=== PATIENT | female | born 1950 | race African-American/Black ===

== ENCOUNTER 2017-07-30 10:40 | Emergency (ER) | payer MEDICARE ==
[2017-07-30] MEDS ORDERED: Ondansetron ODT 4 MG TAB ONE (11:18)
[2017-07-30 11:20] LABS: Bilirubin Small (Negative); Blood, Urine Large (Negative); Glucose, Urine (Dipstick) Negative (Negative); Ketone, Urine Trace mg/dL (Negative); Nitrite Positive (Negative); Protein, Urine (Dipstick) 100 mg/dL (Neg-Trace)
[2017-07-30 11:22] LABS: Bacteria/HPF 4+ HPF (None Seen); Hyaline Casts/LPF 0-3 HYALINE CAST LPF (0-3 Hyaline); Squamous Epithelial 0-3 HPF (0-3)
[2017-07-30 11:32] LABS: Yeast-All Forms None Seen HPF (None Seen)
[2017-07-30 11:33] LABS: Hematocrit 35.1 % (36.0-47.0); Mean Platelet Volume 7.9 fL (7.4-10.4); Red Blood Cell (RBC) Count 3.93 mill/uL (4.20-5.40); White Blood Cell (WBC) Count 9.4 thou/uL (4.8-10.8)
[2017-07-30 11:34] LABS: #Lymphocytes 0.9 thou/uL (1.20-3.40); #Monocytes 1.1 thou/uL (0.11-0.59); #Neutrophils 7.4 thou/uL (1.40-6.50); %Basophils 0.2 % (0.0-1.0); %Lymphocytes 9.5 % (21.0-51.0); %Monocytes 12.1 % (0.0-10.0)
[2017-07-30 11:55] LABS: ALT (SGPT) 27 U/L (8-55); AST (SGOT) 31 U/L (5-34); Alkaline Phosphatase 118 U/L (40-150); Anion Gap 14 mmol/L (10-20); BUN (Urea Nitrogen) 11 mg/dL (9.8-20.1); Bilirubin, Total 0.9 mg/dL (0.2-1.2); Calc. Creatinine Clearance 0 mL/min (70-130); Calcium 8.5 mg/dL (7.8-10.44); Carbon Dioxide 26 mmol/L (23-31); Chloride 94 mmol/L (98-107); Estimated GFR-MDRD Greater than 90; Globulin 3.9 g/dL (2.4-3.5); Lipase 12 U/L (8-78); Protein, Total 7.2 g/dL (6.0-8.3)
[2017-07-30] MEDS ORDERED: Sulfameth/Trimethoprim DS 800-160mg TAB ONE (13:01)
--- NOTE | 2017-07-30 15:14 | CT ---
ABDOMEN CT WITH CONTRAST PELVIC CT WITH CONTRAST: Date: 07/30/17 COMPARISON: 07/07/14. CORRELATION: CT angiogram chest dated 02/26/17 and 04/22/13. TECHNIQUE: Abdomen and pelvic CT are performed with IV contrast. Coronal reformatted images are submitted for i nterpretation. FINDINGS: ABDOMEN CT: There is irregular marginated opacity in the anterior right lower lobe measuring 1.2 x 1.4 cm. This opacity is noted on prior studies dating as far back as April 2013. There has been no significant zainab nge. There is also a stable, 3.0 mm nodule in the middle lobe, unchanged. Heart size is within sharda l limits. No significant pericardial fluid. The visualized aorta has an overall normal caliber. No p eriaortic fat stranding. Symmetric attenuation of the psoas muscles. Intra and extrahepatic portal vein is patent. The liver, pancreas, and adrenal glands have appropria te enhancement. Redemonstration of an exophytic hypodensity emanating from the right kidney, with attenuation coeffi cient of 51 Hounsfield units. This hypodensity measures 3.8 x 4.1 cm (previously measuring 3.7 x 3.4 cm). The possibility of a complex cyst is raised, which is slightly increased in size. On the coron al images, there is questionable enhancement along the inferior portion. There is no evidence of obs tructive uropathy. There are multiple hypodensities involving the spleen. These hypodensities are noted as far back as April 2013, suggesting a chronic process. No mesenteric mass, lymphadenopathy, free air, or free fluid. No gastrohepatic, retrocrural, or periportal lymphadenopathy. Limited evaluation of the alimentary canal due to incomplete oral contrast opacification. No evidenc e of bowel obstruction. Ileocecal junction s normal. Appendix is difficult to appreciate. No obvious inflammation at the cecal apex. Scattered fecal material and contrast in a nondistended, nondilated colon. PELVIC CT: Urinary bladder is unremarkable. No pelvic mass, lymphadenopathy, free air, or free fluid. There are no osteoblastic or osteolytic lesions. IMPRESSION: 1. No acute abnormality in the abdomen or pelvis. 2. Chronic changes in the right lower lobe and middle lobe. 3. Chronic changes in the spleen. 4. Probably enlarging complex right renal cyst. Better interrogation with a nonemergent renal mass protocol CT versus abdomen MRI is recommended to confirm that there is no underlying neoplasm. POS: [facility]
[2017-07-30] MEDS ORDERED: ISOVUE-370 76%-LOCM 1 ML ONE (15:26)
== END 2017-07-30 15:11 | disposition home or self-care (01) ==
LOC: ERS 10:40
DX: N39.0 Urinary tract infection, site not specified (principal); J44.9 Chronic obstructive pulmonary disease, unspecified; E78.5 Hyperlipidemia, unspecified; I10 Essential (primary) hypertension; F32.9 Major depressive disorder, single episode, unspecified; F17.210 Nicotine dependence, cigarettes, uncomplicated
CPT/HCPCS: 36415; 74177; 80053; 81003; 81015; 83690; 85025; 87077; 87086; 87186; Q0162

== ENCOUNTER 2017-12-25 17:47 | Inpatient (IN) | payer MEDICARE ==
--- NOTE | 2017-12-25 20:12 | RAD ---
SINGLE VIEW OF THE CHEST: Comparison: 02-26-17 History: Syncope versus seizure. Witnessed fall. FINDINGS: Single view of the chest shows a normal sized cardiomediastinal silhouette. There is no evidence of c onsolidation, mass, or pleural effusion. The bones are unremarkable. IMPRESSION: No evidence of acute cardiopulmonary disease. POS: [facility]
[2017-12-25 20:34] LABS: #Lymphocytes 1.2 thou/uL (1.20-3.40); #Monocytes 0.4 thou/uL (0.11-0.59); %Basophils 0.6 % (0.0-1.0); %Eosinophils 0.1 % (0.0-10.0); %Lymphocytes 22.1 % (21.0-51.0); %Monocytes 6.8 % (0.0-10.0); %Neutrophils 70.4 % (42.0-75.0); Hemoglobin 12.4 g/dL (12.0-16.0); Mean Corpuscular Hemoglobin 27.5 pg (27.0-31.0); Mean Platelet Volume 9.3 fL (7.4-10.4); Platelet Count 219 thou/uL (130-400); RBC Distribution Width 15.6 % (11.5-14.5); White Blood Cell (WBC) Count 5.6 thou/uL (4.8-10.8)
[2017-12-25 20:41] LABS: INR-International Normal Ratio 1.1; Prothrombin Time 14.4 SEC (12.0-14.7)
[2017-12-25 20:48] LABS: ALT (SGPT) 13 U/L (8-55); AST (SGOT) 17 U/L (5-34); Albumin 3.9 g/dL (3.4-4.8); Alkaline Phosphatase 112 U/L (40-150); Anion Gap 11 mmol/L (10-20); BUN (Urea Nitrogen) 12 mg/dL (9.8-20.1); Bilirubin, Total 0.3 mg/dL (0.2-1.2); Calc. Creatinine Clearance 0 mL/min (70-130); Calcium 9.5 mg/dL (7.8-10.44); Carbon Dioxide 25 mmol/L (23-31); Chloride 104 mmol/L (98-107); Estimated GFR-MDRD Greater than 90; Globulin 3.6 g/dL (2.4-3.5); Glucose 94 mg/dL (80-115); Potassium 4.1 mmol/L (3.5-5.1); Protein, Total 7.5 g/dL (6.0-8.3); Sodium 136 mmol/L (136-145)
[2017-12-25 21:02] LABS: CKMB 2.2 ng/mL (0-6.6); Troponin I 0.014 ng/mL (< 0.028)
--- NOTE | 2017-12-25 21:06 | CT ---
CT OF THE BRAIN WITHOUT CONTRAST: Comparison: 03-04-15 History: Syncope versus seizure, witnessed fall. Technique: Multiple contiguous axial images were obtained in a CT of the brain without contrast. FINDINGS: There is a hypodense subdural collection along the left frontal convexity extending slightly to the p arietal convexity. This measures 9 mm in thickness. There is hyperdensity along the calvarium in this location which may represent an acute on chronic component and this likely represents an acute on ch ronic subdural hematoma. No significant midline shift of downward herniation is seen. There is no mya dence of hydronephrosis or intraventricular hemorrhage. The calvarium and overlying soft tissues are unremarkable. The visualized paranasal sinuses and masto id air cells are well aerated. IMPRESSION: Acute on chronic left subdural hematoma. Dr. Macdonald notified of the findings at 7:37 p.m. on 12-25-17 . POS: [facility]
--- NOTE | 2017-12-25 21:09 | CT ---
CT CERVICAL SPINE WITHOUT CONTRAST: Comparison: None. History: Fall with seizure. Neck pain. Technique: Multiple contiguous axial images were obtained in a CT of the cervical spine without contr ast. Sagittal and coronal reformats were performed. FINDINGS: There are moderate degenerative changes in the cervical spine. There is fusion of the C2 and C3 level s. The vertebral bodies demonstrate normal height and alignment without acute fracture or subluxation . No prevertebral soft tissue swelling is seen. Posterior facets are well aligned. Normal alignment of the skull base with the cervical spine is seen . There are emphysematous changes in the lung apices. IMPRESSION: Moderate degenerative changes of the cervical spine without acute osseous abnormality. POS: [facility]
[2017-12-25] MEDS: SODIUM CHLORIDE 0.9% IVPB SCH (23:37)
[2017-12-25] MEDS: FOSPHENYTOIN SODIUM IVPB SCH (23:37)
[2017-12-25] MEDS: Sodium Chloride 0.9% 1,000 ML IV SCH (23:37)
[2017-12-25] MEDS ORDERED: Acetaminophen 325 MG TAB PO PRN (23:55)
[2017-12-26 02:55] VITALS: BMI 21.9
--- NOTE | 2017-12-26 07:46 | CON ---
DATE OF CONSULTATION: 12/26/2017 ATTENDING PHYSICIAN: Dr. Lei Monet HISTORY OF PRESENT ILLNESS: The patient is a 67-year-old female with a past medical history of seizure disorder on Dilantin, hypertension , hyperlipidemia who presented to the emergency department after a suspected seizure. The patient reports she was walking to her neighbor's house and the last thing she remembers waking up on the ground. She believes she likely had a seizure. She reports she has had several other falls/seizure episodes over the last [address] head on arrival was notable for a left subdural hematoma, acute on chronic. There is no midline shift. Neurosurgery was consulted for further evaluation of this subdural hematoma. The patient was admitted to the medical service for further management of her recent seizures. PAST MEDICAL HISTORY: COPD, hypertension, hyperlipidemia, seizure disorder. PAST SURGICAL HISTORY: Right lung surgery, hysterectomy. SOCIAL HISTORY: The patient does not drink or use any drugs. She smokes approximately 10 cigarettes a day. FAMILY HISTORY: Noncontributory. ALLERGIES: The patient is allergic to PENICILLIN. CURRENT MEDICATIONS: Dilantin 30 mg tabs 3 tabs p.o. b.i.d., lisinopril 30 mg tab 1 tab p.o. daily. REVIEW OF SYSTEMS: Per HPI. PHYSICAL EXAMINATION: VITAL SIGNS: Temperature is 98.5, heart rate 68, respiration is 16. The patient is 97% on room air, blood pressure is 116/63. CONSTITUTIONAL: She has a GCS of 15. She is alert and oriented x4, in no acute distress, comfortable. HEAD: Normocephalic, atraumatic. EYES: PERRLA. Extraocular movements are intact. ENT: Oral mucosa is pink, intact and moist. She has normal voice. NECK: Nontender with palpation. Free active range of motion. RESPIRATORY: The patient has symmetric chest expansion, no evidence of dyspnea. CARDIOVASCULAR: Regular rate and rhythm. MUSCULOSKELETAL: Good muscle tone bilateral upper and lower extremities. NEUROLOGIC: No focal motor weakness. NEUROLOGIC: She has a GCS of 15, alert and oriented x4. Normal cranial nerve exam, normal speech. Nonfocal neurologic deficits are appreciated. ASSESSMENT AND PLAN: This is a 67-year-old female with history of seizure disorder who was recently brought to the emergency department after a seizure episode. CT head was notable for subdural hematoma on the left, but this primarily appears chronic in nature and appears stable on repeat a.m. head CT. She is neurologically intact and has no complaints at this time. She is not on any anticoagulants or antiplatelet drugs. We will recommend that she continue to remain off these medications. She takes Dilantin for her seizures and reports she has been compliant with this medication. We will defer any medication adjustments of this medication to the primary team. I do not anticipate any acute neurosurgical intervention. Please reach out to the neurosurgical service for any additional questions or concerns. KEITH
[2017-12-26] MEDS: SODIUM CHLORIDE 0.9% IVPB SCH (08:17)
[2017-12-26] MEDS: FOSPHENYTOIN SODIUM IVPB SCH (08:17)
--- NOTE | 2017-12-26 08:20 | CT ---
PRELIMINARY REPORT/[facility]/EMERGENCY AFTER HOURS PROCEDURE: EXAM: CT Head Without Intravenous Contrast CLINICAL HISTORY: 67 years old, female; Condition or disease; Other: Sdh; Patient HX: . Repeat eval acute on chronic sd h TECHNIQUE: Axial computed tomography images of the head/brain without intravenous contrast. COMPARISON: CT Brain WO Con 2017-12-25 19:27 FINDINGS: Acute on chronic left-sided subdural hematoma, grossly stable in appearance. Mass effect and midline shift to the right are grossly stable. Cisterns are patent. There is no hydrocephalus or acute territorial infarction. Right-sided sinusitis grossly stable IMPRESSION: Grossly stable acute on chronic left-sided subdural hematoma Thank you for allowing us to participate in the care of your patient. Dictated and Authenticated by: Sudeep Daly MD 12/26/2017 6:07 AM Central Time ([place] & [place]) FINAL REPORT HEAD CT WITHOUT CONTRAST: DATE: 12/26/17. COMPARISON: 12/25/17. HISTORY: Reevaluate subdural hematoma. FINDINGS: I agree with the preliminary [facility] report. There is opacification of the imaged anterior ethmoid air cells and maxillary sinus on the right. There is no displaced calvarial fracture. There is a subdural hematoma of mixed attenuation, which suggests acute on chronic subdural hematoma within the left frontal region, measuring up to 9 mm in greatest transverse dimension, similar when c ompared to the prior exam. There is mild stable [id number] midline shift measuring in the 5 mm ra nge. IMPRESSION: Stable acute on chronic left subdural hematoma with stable mass effect and [id number] midline shif t measuring in the 5 mm range. POS: [facility]
[2017-12-26] MEDS ORDERED: FLU VACC TS2017-18 (>65YR) 0.5 ML SYRINGE IM ONE (09:00)
--- NOTE | 2017-12-26 11:16 | CON ---
DATE OF CONSULTATION: 12/26/2017 Seen and examined, agreed with Ni Scott PA-C, note 12/26/2017 A 67-year-old woman with a history of seizure disorder, having had 2 seizures or at least falls over the past several weeks. CT scan shows a small left chronic subdural hygroma with perhaps some acute blood. There is no meaningful mass effect. It was stable on followup this morning. IMPRESSION AND PLAN: With regard to the subdural hematoma, no intervention is planned. I will arran ge a followup CAT scan and clinical visit in 4 weeks. With regard to the seizure disorder, I will defer to Medicine with possible Neurology consult regardi ng adjustment of seizure medicine.
[2017-12-26] MEDS: Sodium Chloride 0.9% 1,000 ML IV SCH (11:39)
[2017-12-26] MEDS ORDERED: Fluticasone Propionate Nasal Spray 16 gm Bottle NASAL PRN (18:07)
[2017-12-26] MEDS ORDERED: Atorvastatin Calcium 20 MG TAB PO SCH (21:00)
[2017-12-27] MEDS ORDERED: Aspirin 81 mg Enteric Coated Tablet PO SCH (09:00)
[2017-12-27] MEDS ORDERED: Amlodipine 5 MG TAB PO SCH (09:00)
[2017-12-27] MEDS ORDERED: Multivitamin W/ Minerals 1 TAB PO SCH (09:00)
--- NOTE | 2017-12-27 10:07 | HP ---
DATE OF ADMISSION: 12/25/2017 CHIEF COMPLAINT: Seizure episode, fall. HISTORY OF PRESENT ILLNESS: Martin is a 67-year-old -Italian female with past medical history of hypertension, seizure disorder who was brought in because she fell. The patient had a seizure episode, she became unconscious and she was in postictal state. The patient does not remember anything after fall. She remembers she was standing in her yard and then she was found by her neighbors. The patient says she has been taking her Dilantin regularly. So the patient was brought to the emergency room where the patient is alert, awake , complained of neck pain. The patient was found to have acute on chronic subdural hematoma in the ER. Her Dilantin level was 4, so the patient received a dose of Dilantin IV piggyback. Neck CT was negative. The patient admitted for further evaluation and management. PAST MEDICAL HISTORY: 1. Hypertension. 2. Seizure disorder. 3. Hyperlipidemia. 4. History of depression. PAST SURGICAL HISTORY: 1. Total hysterectomy. 2. Status post removal of cyst from breast. CURRENT MEDICATIONS: The patient is on Dilantin 300 mg b.i.d., Lipitor 20 mg daily, lisinopril/hydrochlorothiazide 10/12.5 daily, Symbicort inhaler 2 puffs b.i.d. ALLERGIES: PENICILLIN. FAMILY HISTORY: Nothing of interest. SOCIAL HISTORY: The patient lives with family. No history of smoking. No history of alcohol intake. REVIEW OF SYSTEMS: Cardiovascular: No chest pain, no shortness of breath. Respiratory: No cough, fever. Gastrointestinal: No nausea or vomiting. No abdominal pain. No distention. Central Nervous System: No headache or dizziness. PHYSICAL EXAMINATION: GENERAL: The patient is alert, awake, oriented x3. VITAL SIGNS: Temperature 98, pulse 86, respirations 16, blood pressure 108/70. HEENT: Head is normocephalic, atraumatic. Pupils equal and reactive to light. Nasopharynx is pale and dry. Hard and soft palate, no lesions. SKIN: Skin turgor decreased. NECK: Supple. No JVD. LUNGS: Bilateral air entry, no rales or rhonchi. HEART: S1, S2 regular. ABDOMEN: Soft, no distention, no tenderness. Normal bowel sounds. . CENTRAL NERVOUS SYSTEM: No focal deficits. LABORATORY AND X-RAY FINDINGS: CBC shows WBC 5.6, hemoglobin 12, hematocrit 38 , platelets 219. Metabolic panel: Sodium 136, potassium 4, chloride 104, CO2 of 25, urea nitrogen 12, creatinine 0.69, glucose 94. CK-MB 2.2. Troponin 0.014. Her Dilantin level 4. Cervical spine CT showed moderate degenerative changes, no acute abnormality. Chest x-ray, no evidence of acute cardiopulmonary disease. CT of the brain, grossly stable, acute on chronic left -sided subdural hematoma. The patient also reports she had lip swelling with lisinopril. ASSESSMENT: 1. Seizure disorder with fall. 2. Acute on chronic subdural hematoma secondary to fall. 3. Hypertension. 4. Chronic obstructive pulmonary disease. 5. Drug reaction to LISINOPRIL. PLAN: 1. Vital signs q. 4 hours. 2. Activity: As tolerated. 3. Allergies, PENICILLIN. 4. Hep-Lock. 5. Diet: Regular. 6. Continue home medication. 7. We will discontinue lisinopril. 8. We will get Dilantin level. 9. We will start Norvasc 5 mg daily. 10. We will obtain Neurology consult. [facility]
[2017-12-27 15:48] VITALS: BP 143/85; TEMP 98.6
[2017-12-27] MEDS ORDERED: levETIRAcetam 500 MG TAB PO SCH ×2 (16:30→21:00)
--- NOTE | 2017-12-27 16:31 | CON ---
DATE OF CONSULTATION: 12/27/2017 REFERRING PROVIDER: Scotty Owen M.D. REASON FOR CONSULTATION: Recurrent seizures. HISTORY OF PRESENT ILLNESS: Ms. Salazar is a pleasant 67-year-old -Slovenian female, who has been consulted for evaluation of recurrent seizures. She reports that she has a history of seizure disor shannon since in her 40s. She has been on Dilantin 300 mg twice daily. She has been very compliant with her medication. She states that she had been seizure free for approximately 6 years. She had an ep isode of seizure at home about 10 days ago which was while she was in bathroom where she fell down an d hit her head. She had another episode of seizure on Monday, which brought her to the [facility] Room. She does not remember the whole event. She states that she generally has no postictal aura. She had a sudden loss of consciousness followed by tonic clonic convulsions lasting several m inutes. She does have tongue biting and loss of bladder control. She has prolonged postictal confus ion. She had a CT head without contrast done on arrival here, which had shown acute on chronic subdu ral hematoma. Her Dilantin level was noted to be only 4. PAST MEDICAL HISTORY: Significant for hypertension, seizure disorder, hyperlipidemia, and history of depression. PAST SURGICAL HISTORY: Significant for total hysterectomy and cyst removal from breast. CURRENT MEDICATIONS: Please review MAR. ALLERGIES: Include PENICILLIN. FAMILY HISTORY: Noncontributory. SOCIAL HISTORY: She denies smoking, alcohol use, or illicit drug use. She currently lives alone. REVIEW OF SYSTEMS: As mentioned in the HPI, otherwise negative. PHYSICAL EXAMINATION: VITAL SIGNS: Blood pressure 143/85, pulse of 71, temperature of 98.6, respirations of 16, O2 sats of 95% on room air. GENERAL: Well-developed and well-nourished -Slovenian female, in no apparent distress. RESPIRATORY: Clear to auscultation bilaterally. CARDIOVASCULAR: Regular rate and rhythm. NEUROLOGICAL: Mental status: The patient is awake, alert, and oriented x3. Speech and language: F luent speech. Cranial nerves: Pupils are 3 mm and reactive. Visual funes are intact. Peripheral muscles are intact. No nystagmus noted. Face is symmetric. Tongue and uvula are midline. Motor ex am showed normal tone and bulk with 5/5 strength in both lower extremities. Sensory: Sensation is i ntact and symmetric. Deep tendon reflexes 2+ reflexes in both upper and lower extremities. Babinski : Plantar responses flexion bilaterally. Coordination intact to cvybna-zdwk-gotjri and finger tappi ng bilaterally. LABORATORY DATA: Reviewed, which included CBC, coag panel, CMP, and Dilantin level which is signific ant for Dilantin level of 4.1 at admission, it is 9.6 today. IMAGING STUDIES: CT head without contrast was reviewed, which showed acute on chronic subdural hemat juliana. IMPRESSION: 1. Generalized tonic-clonic seizure disorder. 2. Acute on chronic subdural hematoma. ASSESSMENT AND PLAN: Ms. Salazar is a pleasant 67-year-old -Slovenian female with history of seiz ure disorder who presented with the second episode of seizure in the past 10 days. She had been comp liant with her medication and has been seizure free for 6 years until 10 days ago. Her Dilantin leve l is subtherapeutic, even though she has been compliant with her medicine. At this time, I would rec ommend continuing Dilantin at the current dose. I will add Keppra 500 mg twice daily for seizure the rapy. She is okay to be discharged to home. I have advised her on seizure precautions including no driving, no climbing ladders, no operating of heavy machinery. She will follow up with my clinic in 6-8 weeks post-discharge. Thank you for consultation.
== END 2017-12-27 18:30 | disposition home or self-care (01) | DRG 100 ==
LOC: ERS 17:47 → 2SE 21:19
PROVIDERS: ADMIT Internal Medicine; ATTEND Internal Medicine
DX: G40.409 Other generalized epilepsy and epileptic syndromes, not intractable, without status epilepticus (principal); S06.5X9A Traumatic subdural hemorrhage with loss of consciousness of unspecified duration, initial encounter; J44.9 Chronic obstructive pulmonary disease, unspecified; E78.5 Hyperlipidemia, unspecified; I10 Essential (primary) hypertension; W18.30XA Fall on same level, unspecified, initial encounter; Y92.017 Garden or yard in single-family (private) house as the place of occurrence of the external cause; F32.9 Major depressive disorder, single episode, unspecified; Z88.0 Allergy status to penicillin; T46.4X5A Adverse effect of angiotensin-converting-enzyme inhibitors, initial encounter; F17.210 Nicotine dependence, cigarettes, uncomplicated; R60.9 Edema, unspecified
CPT/HCPCS: 36415; 70450; 71045; 72125; 80053; 80185; 82553; 84146; 84484; 85025; 85610; 85730; 90471; 90682; 93005; A4216; G0008; J7050; Q2009; Q2036

== ENCOUNTER 2018-01-30 12:41 | Inpatient (IN) | payer MEDICARE ==
[2018-01-30 13:19] LABS: #Lymphocytes 1.8 thou/uL (1.20-3.40); #Monocytes 0.5 thou/uL (0.11-0.59); #Neutrophils 3.1 thou/uL (1.40-6.50); %Basophils 0.2 % (0.0-1.0); %Lymphocytes 33.7 % (21.0-51.0); %Monocytes 9.5 % (0.0-10.0); %Neutrophils 56.6 % (42.0-75.0); Hemoglobin 12.7 g/dL (12.0-16.0); Mean Corpuscular HGB CONC 32.5 g/dL (32.0-36.0); Mean Corpuscular Hemoglobin 28.1 pg (27.0-31.0); Mean Corpuscular Volume 86.4 fl (81.0-99.0); Mean Platelet Volume 9.3 fL (7.4-10.4); Platelet Count 210 thou/uL (130-400); RBC Distribution Width 15.1 % (11.5-14.5); Red Blood Cell (RBC) Count 4.51 mill/uL (4.20-5.40); White Blood Cell (WBC) Count 5.4 thou/uL (4.8-10.8)
[2018-01-30 13:40] LABS: ALT (SGPT) 11 U/L (8-55); AST (SGOT) 14 U/L (5-34); Albumin 3.8 g/dL (3.4-4.8); Alkaline Phosphatase 129 U/L (40-150); Anion Gap 13 mmol/L (10-20); BUN (Urea Nitrogen) 9 mg/dL (9.8-20.1); Bilirubin, Total 0.4 mg/dL (0.2-1.2); Calc. Creatinine Clearance 0 mL/min (70-130); Calcium 9.3 mg/dL (7.8-10.44); Carbon Dioxide 23 mmol/L (23-31); Chloride 105 mmol/L (98-107); Estimated GFR-MDRD Greater than 90; Globulin 3.5 g/dL (2.4-3.5); Glucose 97 mg/dL (80-115); Potassium 3.5 mmol/L (3.5-5.1); Protein, Total 7.3 g/dL (6.0-8.3); Sodium 137 mmol/L (136-145)
--- NOTE | 2018-01-30 13:42 | RAD ---
PORTABLE CHEST 1 VIEW: Date: 01/30/18 Time: 1320 hours HISTORY: Presyncope, hypertension, seizures. FINDINGS: Comparison made with exam of 12/25/17. The heart size is normal. The aorta is tortuous. The lungs are well expanded without focal areas of c onsolidation, pneumothorax, or pleural effusions. There are degenerative changes in the right acromio clavicular joint. IMPRESSION: No radiographic evidence of acute cardiopulmonary process. POS: [facility]
[2018-01-30 13:44] LABS: CKMB 0.4 ng/mL (0-6.6); Troponin I Less than 0.010 ng/mL (< 0.028)
--- NOTE | 2018-01-30 13:46 | CT ---
CT BRAIN NONCONTRAST: DATE: 01/30/2018 TIME: 1:27 p.m. HISTORY: A 67-year-old female, status post acute head trauma due to fall. Dizziness. Seizure. COMPARISON: 12/26/2017 FINDINGS: The previously demonstrated [id number] small left frontotemporoparietal subdural hematoma, steff uring approximately 9 mm in thickness, has become smaller, currently measuring approximately 4 mm in thickness. It is overall slightly lower in density, intermediate between brain parenchyma and CSF. The previously demonstrated mass effect has improved, with the previously demonstrated [id number] mild midline shift now almost completely resolved. The ventricles are normal in size and configurati on. There is no evidence of acute intraaxial hemorrhage. There is no bur hole or fracture of the ca lvarium. IMPRESSION: 1. Interval decrease in the size of the previously demonstrated left small, acute on chronic, subdur al hematoma; and interval improvement (almost resolved) mass effect. 2. No acute intracranial findings. LONG Tadeo POS: [facility]
--- NOTE | 2018-01-30 14:12 | CT ---
NONCONTRAST CT CERVICAL SPINE: 01/30/2018 HISTORY: Dizziness. The patient fell twice in two days, hitting back of head on a table. Seizure. COMPARISON: 12/25/2017 TECHNIQUE: Contiguous axial CT images are obtained through the cervical spine, from the skull base to the T2-T3 level. Sagittal and coronal reformatted images are provided. FINDINGS: There is straightening of the normal cervical lordotic curvature. There is fusion of the C2 and C3 vertebral bodies. Multilevel degenerative changes are again seen in the cervical spine, which have not progressed when compared to the prior exam. Posterior osteophyte formation and uncinate process hypertrophy are seen at multiple levels, resulting in moderate to sev ere degrees of neural foraminal narrowing at multiple levels, also present on prior exam. No fracture or subluxation is seen involving the cervical spine. Prevertebral soft tissues are within normal limits. There is a hypodense nodule in the left lobe of the thyroid gland. This was present on the prior exa m and was also seen on the study of 02/26/2017 and a study in 2012. Emphysematous changes are again seen in the lung apices. Vascular calcifications are again present. IMPRESSION: 1. Stable multilevel degenerative changes in the cervical spine without evidence of a fracture or marks bluxation. 2. Stable hypodense nodule, left lobe of thyroid gland. POS: [facility]
[2018-01-30 14:46] LABS: Bilirubin Negative (Negative); Blood, Urine Large (Negative); Clarity CLOUDY (Clear); Glucose, Urine (Dipstick) Negative (Negative); Leukocyte Large (Negative); Nitrite Positive (Negative); Protein, Urine (Dipstick) Negative (Neg-Trace); Urobilinogen 0.2 mg/dL (0.2-1.0)
[2018-01-30 14:52] LABS: Bacteria/HPF 4+ HPF (None Seen); Hyaline Casts/LPF 0-3 HYALINE CAST LPF (0-3 Hyaline); Squamous Epithelial None Seen HPF (0-3)
[2018-01-30 14:55] LABS: Amphetamine Not Detected (NotDetected); Barbiturates Screen Detected (NotDetected); Benzodiazepine Screen Not Detected (NotDetected); Cocaine Metabolite Screen Not Detected (NotDetected); Medtox Control Line Valid? VALID (VALID); Medtox Reader # READER 4; Methadone Not Detected (NotDetected); Methamphetamine Not Detected (NotDetected); Opiate Screen Not Detected (NotDetected); Oxycodone Screen Not Detected (NotDetected); Phencyclidine (PCP) Not Detected (NotDetected); THC/Cannabinoid Screen Not Detected (NotDetected); Tricyclic Screen Not Detected (NotDetected)
[2018-01-30] MEDS ORDERED: cefTRIAXone\\ROCEPHIN 2 GM VIAL ONE (20:55)
[2018-01-30] MEDS ORDERED: levETIRAcetam 500 MG TAB PO SCH (21:45)
[2018-01-30 23:20] VITALS: BMI 23.0
[2018-01-30] MEDS ORDERED: Ondansetron ODT 4 MG TAB SL PRN (23:35)
[2018-01-30] MEDS ORDERED: Ondansetron HCl/PF 4 MG/2 ML Vial IVP PRN (23:35)
[2018-01-31] MEDS: cefTRIAXone\\ROCEPHIN 2 GM in Sodium Chloride 0.9% 100 ML IVPB SCH ×2 (00:32→23:35)
--- NOTE | 2018-01-31 03:15 | HP ---
DATE OF ADMISSION: 01/30/2018 REASON FOR ADMISSION AND CHIEF COMPLAINT: Dizziness, weakness, multiple falls and possible syncopal episode. HISTORY OF PRESENT ILLNESS: Ms. Salazar is a 67-year-old -French female who admitted because o f syncope as well as multiple falls. The patient states she has been feeling dizzy for the last few days and fell yesterday and passed out and fell again today twice in the house. First time, she hit the TV stand; later that, she hit the commode. The patient is unable to stand or walk because of diz ziness and unsteady gait, so decided to come to the hospital. In the ER, the patient was evaluated a nd found to have markedly elevated Dilantin level of 33, so she was given IV fluid bolus and is being admitted for further evaluation and management. She does not have any chest pain, nausea or vomitin g. No shortness of breath. Has some headache and neck pain. The patient was recently in the hospit al for seizure disorder with fall and had acute on chronic subdural hematoma. PAST MEDICAL HISTORY: 1. Hypertension. 2. Seizure disorder. 3. Chronic obstructive pulmonary disease. 4. Chronic subdural hematoma. 5. History of drug reaction to LISINOPRIL. PAST SURGICAL HISTORY: 1. Status post hysterectomy. 2. Status post removal of cyst from breast. CURRENT MEDICATIONS: The patient is on Dilantin 300 mg b.i.d., Lipitor 20 mg daily, Symbicort inhale r 2 puffs b.i.d., and amlodipine 5 mg daily. ALLERGIES: PENICILLIN. FAMILY HISTORY: Nothing of interest. SOCIAL HISTORY: The patient lives with family. No history of smoking. No history of alcohol intake . REVIEW OF SYSTEMS: Cardiovascular: No chest pain or shortness of breath. Respiratory: No fever or cough. Gastrointestinal: No nausea or vomiting. No abdominal pain. Central nervous system: Has headache and dizziness. PHYSICAL EXAMINATION: GENERAL: The patient is alert, awake, oriented x3. VITAL SIGNS: Temperature 98, pulse 77, respirations 20, blood pressure 129/90. HEENT: Head is normocephalic, atraumatic. Pupils are equal and reactive to light. Nasopharynx is p wilson and dry. Hard and soft palate, no lesions seen. SKIN: Skin turgor decreased. NECK: Supple. No JVD. LUNGS: Bilateral air entry present, no rales, no rhonchi. CARDIAC: S1, S2 regular. ABDOMEN: Soft, obese. No tenderness. Normal bowel sounds present. RECTAL: Deferred. CENTRAL NERVOUS SYSTEM: The patient is alert, awake and oriented x3. Motor system power 4/5 in all extremities. Deep tendon reflexes 2+ bilaterally. Plantar downgoing. Sensory intact. LABORATORY AND X-RAY FINDINGS: CBC shows WBC 12.5, hemoglobin 12, hematocrit 39, platelets 210. Met abolic panel: Sodium 137, potassium 3.5, chloride 105, CO2 of 23, urea nitrogen 9, creatinine 0.6 an d glucose 97. CK-MB 0.4, troponin I less than 0.010. Urinalysis showed wbc greater than 50 and bact eria 4+. Dilantin level was 33.4. CT of the brain showed interval decrease in the size of previousl y demonstrated subdural hematoma. CT of the cervical spine, stable with multilevel degenerative child ges, no evidence of any fracture. EKG shows normal sinus rhythm, no acute ST-T wave changes seen. C hest x-ray negative. ASSESSMENT: 1. Dilantin toxicity with unsteady gait and multiple falls. 2. Syncopal episode. 3. Urinary tract infection. 4. Hypertension. 5. Seizure disorder. 6. Chronic obstructive pulmonary disease. 7. Chronic subdural hematoma, improving. PLAN: 1. Vital signs q.4 hours. 2. Activity: As tolerated. 3. Allergies: PENICILLIN. 4. Hep-Lock. 5. Hold Dilantin. 6. Rocephin 2 grams IV piggyback daily. 7. Urine cultures. 8. Diet: Regular. 9. Will continue home medications except Dilantin. 10. Intake and output.
[2018-01-31] MEDS ORDERED: Fluticasone Propionate Nasal Spray 16 gm Bottle NASAL PRN (09:49)
[2018-01-31] MEDS: Aspirin 325 MG TAB PO SCH (10:17)
[2018-01-31] MEDS: Amlodipine 5 MG TAB PO SCH (10:17)
[2018-01-31] MEDS: levETIRAcetam 500 MG TAB PO SCH ×2 (10:18→20:25)
[2018-01-31] MEDS: Multivitamin W/ Minerals 1 TAB PO SCH (10:18)
[2018-01-31] MEDS ORDERED: Acetaminophen 325 MG TAB PO PRN (11:37)
[2018-01-31] MEDS ORDERED: Atorvastatin Calcium 20 MG TAB PO SCH (21:00)
[2018-02-01] MEDS: Amlodipine 5 MG TAB PO SCH (09:31)
[2018-02-01] MEDS: levETIRAcetam 500 MG TAB PO SCH (09:31)
[2018-02-01] MEDS: Aspirin 325 MG TAB PO SCH (09:31)
[2018-02-01] MEDS: Multivitamin W/ Minerals 1 TAB PO SCH (09:32)
[2018-02-01 12:54] VITALS: BP 168/51; TEMP 98
--- NOTE | 2018-02-02 14:31 | DIS ---
DATE OF ADMISSION: 01/30/2018 DATE OF DISCHARGE: 02/01/2018 ADMITTING DIAGNOSES: 1. Dilantin toxicity with unsteady gait and multiple falls. 2. Syncopal episode. 3. Urinary tract infection. 4. Hypertension. 5. Seizure disorder. 6. Chronic obstructive pulmonary disease. 7. Chronic subdural hematoma. FINAL DIAGNOSES: 1. Dilantin toxicity with unsteady gait, improved. 2. Syncopal episode, resolved. 3. Urinary tract infection. 4. Hypertension. 5. Seizure disorder. 6. Chronic obstructive pulmonary disease. BRIEF SUMMARY OF HOSPITAL COURSE: Ms. Salazar is a 67-year-old -[place] female admitted because of syncopal episode and multiple falls and unsteady gait. The patient was found to have an elevated Dilantin level with Dilantin toxicity. Dilantin level was 33.4 on admission. Her Dilantin was held and the patient was given IV fluids in the next 2 days, patient improved markedly. Her unsteady gai t, improved. She is able to ambulate without any problem when Dilantin level came down to 16. The p atient was also found to have a urinary tract infection. Urine cultures were done. Culture showed E . coli sensitive to Rocephin and Levaquin and Macrobid. So, in view of the improvement of her sympto ms, the patient was discharged home. At the time of discharge, she was stable. Her vital signs were stable. Lungs were clear. Heart sounds regular. Abdomen soft, nontender. Bowel sounds present. DISCHARGE MEDICATIONS: Include Flonase nasal sprays b.i.d., Keppra 500 b.i.d., multivitamin daily, D ilantin 300 mg b.i.d., Lipitor 20 mg daily, aspirin 325 mg daily, amlodipine 5 mg daily, and Cipro 50 0 b.i.d. for 1 week. FOLLOWUP: The patient will come for followup in two weeks.
== END 2018-02-01 15:52 | disposition home or self-care (01) | DRG 312 ==
LOC: ERS 12:41 → ERHOLD 14:33 → 2NO 23:08
PROVIDERS: ADMIT Internal Medicine; ATTEND Internal Medicine
DX: R55 Syncope and collapse (principal); N39.0 Urinary tract infection, site not specified; T42.0X5A Adverse effect of hydantoin derivatives, initial encounter; R42 Dizziness and giddiness; R26.81 Unsteadiness on feet; I10 Essential (primary) hypertension; G40.909 Epilepsy, unspecified, not intractable, without status epilepticus; J44.9 Chronic obstructive pulmonary disease, unspecified; F17.210 Nicotine dependence, cigarettes, uncomplicated; B96.20 Unspecified Escherichia coli [E. coli] as the cause of diseases classified elsewhere; R29.6 Repeated falls; Z88.0 Allergy status to penicillin; Z79.899 Other long term (current) drug therapy
CPT/HCPCS: 36415; 70450; 71045; 72125; 80053; 80185; 80306; 81003; 81015; 82553; 84484; 85025; 87086; 87186; 93005; 96361; 96365; A4216; J0696; J1956; J7050

== ENCOUNTER 2018-04-24 14:22 | Emergency (ER) | payer MEDICARE ==
[2018-04-24 14:44] LABS: #Lymphocytes 1.5 thou/uL (1.20-3.40); #Monocytes 0.4 thou/uL (0.11-0.59); #Neutrophils 2.1 thou/uL (1.40-6.50); %Basophils 0.6 % (0.0-1.0); %Lymphocytes 36.7 % (21.0-51.0); %Monocytes 10.2 % (0.0-10.0); %Neutrophils 52.5 % (42.0-75.0); Mean Corpuscular HGB CONC 32.7 g/dL (32.0-36.0); Mean Corpuscular Hemoglobin 28.3 pg (27.0-31.0); Mean Corpuscular Volume 86.4 fL (78.0-98.0); Mean Platelet Volume 8.5 fL (7.4-10.4); Platelet Count 181 thou/uL (130-400); RBC Distribution Width 13.8 % (11.5-14.5); Red Blood Cell (RBC) Count 4.61 mill/uL (4.20-5.40)
--- NOTE | 2018-04-24 14:50 | RAD ---
CHEST ONE VIEW: History: Weakness, dyspnea. Comparison: 01-30-18 FINDINGS: Cardiac silhouette is magnified by projection. Pulmonary vasculature is slightly engorged with mild r eticular nodular interstitial prominence, more pronounced at the bases. Mediastinum is midline with a ortic calcification. No lobar consolidation or evidence of pneumothorax. IMPRESSION: Mild bibasilar interstitial prominence and borderline pulmonary vascular prominence are stable. POS: [facility]
[2018-04-24 15:06] LABS: ALT (SGPT) 11 U/L (8-55); AST (SGOT) 15 U/L (5-34); Albumin 3.7 g/dL (3.4-4.8); Alkaline Phosphatase 103 U/L (40-150); Anion Gap 13 mmol/L (10-20); BUN (Urea Nitrogen) 12 mg/dL (9.8-20.1); Bilirubin, Total 0.2 mg/dL (0.2-1.2); Calc. Creatinine Clearance 0 mL/min (70-130); Calcium 8.7 mg/dL (7.8-10.44); Carbon Dioxide 27 mmol/L (23-31); Chloride 104 mmol/L (98-107); Estimated GFR-MDRD 85; Globulin 3.3 g/dL (2.4-3.5); Glucose 113 mg/dL (80-115); Potassium 3.6 mmol/L (3.5-5.1); Sodium 140 mmol/L (136-145)
[2018-04-24] MEDS ORDERED: Diazepam 5 MG TAB ONE (16:02)
--- NOTE | 2018-04-24 16:04 | CT ---
CT HEAD NONCONTRAST DATE: 04/24/18 HISTORY: Seizure. Altered mental status. Subdural hematoma. COMPARISON: 01/30/18. FINDINGS: There is no evidence of acute intracranial hemorrhage or infarct. The subtle, slightly hypodense extr a-axial lentiform fluid collection along the left frontal convexity is barely perceptible on today's study, continued to decrease in size. There is no mass effect or shift of midline structures. Ventric les appear normal in size, shape, and position. IMPRESSION: No acute intracranial abnormalities are demonstrated on noncontrast CT head. POS: [facility]
[2018-04-24 16:10] LABS: CKMB 0.7 ng/mL (0-6.6); Troponin I Less than 0.010 ng/mL (< 0.028)
[2018-04-24 17:45] LABS: Bilirubin Negative (Negative); Blood, Urine Moderate (Negative); Clarity CLEAR (Clear); Glucose, Urine (Dipstick) Negative (Negative); Leukocyte Moderate (Negative); Nitrite Negative (Negative); Protein, Urine (Dipstick) Negative (Neg-Trace); Urobilinogen 0.2 mg/dL (0.2-1.0); pH, Urine 6.5 (5.0-9.0)
[2018-04-24 17:47] LABS: Bacteria/HPF None Seen HPF (None Seen); Hyaline Casts/LPF 0-3 HYALINE CAST LPF (0-3 Hyaline); Pathc Cast-AUWi Flag 0.14 (0-2.49); Squamous Epithelial 0-3 HPF (0-3)
== END 2018-04-24 18:05 | disposition home or self-care (01) ==
LOC: ERS 14:22
DX: R06.02 Shortness of breath (principal); R42 Dizziness and giddiness; R79.89 Other specified abnormal findings of blood chemistry; J44.9 Chronic obstructive pulmonary disease, unspecified; E78.5 Hyperlipidemia, unspecified; I10 Essential (primary) hypertension; F32.9 Major depressive disorder, single episode, unspecified; F17.210 Nicotine dependence, cigarettes, uncomplicated; Z79.899 Other long term (current) drug therapy; Z79.82 Long term (current) use of aspirin
CPT/HCPCS: 36415; 70450; 71045; 80053; 80185; 81003; 81015; 82550; 82553; 84484; 85025; 93005; 94640; J7620

== ENCOUNTER 2018-10-19 16:46 | Emergency (ER) | payer MEDICARE ==
[2018-10-19] MEDS ORDERED: levETIRAcetam 500 MG TAB PO SCH (18:00)
[2018-10-19 18:11] LABS: #Lymphocytes 1.4 thou/uL (1.20-3.40); #Monocytes 0.6 thou/uL (0.11-0.59); #Neutrophils 5.9 thou/uL (1.40-6.50); %Basophils 0.5 % (0.0-1.0); %Eosinophils 0.1 % (0.0-10.0); %Lymphocytes 17.8 % (21.0-51.0); %Monocytes 7.9 % (0.0-10.0); %Neutrophils 73.7 % (42.0-75.0); Hemoglobin 14.3 g/dL (12.0-16.0); Mean Corpuscular HGB CONC 32.5 g/dL (32.0-36.0); Mean Corpuscular Hemoglobin 28.7 pg (27.0-31.0); Mean Corpuscular Volume 88.3 fL (78.0-98.0); Mean Platelet Volume 8.7 fL (7.4-10.4); Platelet Count 216 thou/uL (130-400); RBC Distribution Width 12.4 % (11.5-14.5); Red Blood Cell (RBC) Count 4.98 mill/uL (4.20-5.40)
[2018-10-19 18:26] LABS: ALT (SGPT) 21 U/L (8-55); AST (SGOT) 21 U/L (5-34); Albumin 4.3 g/dL (3.4-4.8); Alkaline Phosphatase 121 U/L (40-150); Anion Gap 15 mmol/L (10-20); BUN (Urea Nitrogen) 16 mg/dL (9.8-20.1); Bilirubin, Total 0.4 mg/dL (0.2-1.2); Calc. Creatinine Clearance 0 mL/min (70-130); Calcium 9.8 mg/dL (7.8-10.44); Carbon Dioxide 27 mmol/L (23-31); Chloride 97 mmol/L (98-107); Dilantin Less than 1.8 ug/mL (10.0-20.0); Estimated GFR-MDRD 90; Globulin 3.5 g/dL (2.4-3.5); Glucose 112 mg/dL (80-115); Potassium 3.4 mmol/L (3.5-5.1); Protein, Total 7.8 g/dL (6.0-8.3); Sodium 136 mmol/L (136-145)
--- NOTE | 2018-10-19 18:35 | CT ---
NONCONTRAST CT BRAIN 10/19/18 HISTORY: Seizure, fall. Patient on Dilantin. Patient complains of right sided head and neck pain. COMPARISON: 04/24/18. FINDINGS: There is diminished attenuation of the periventricular white matter predominantly in the biparietal r egion which is similar to prior exam. Findings are overall nonspecific but likely reflective of chron ic small vessel ischemic changes. There is no evidence of an acute cortical infarction, hemorrhage, m ass effect or midline shift. Ventricular system is normal in size, shape and position. Previously not ed left subdural collection along the left frontal calvarium on prior exam is not visualized on today 's exam. There is no evidence of a calvarial fracture. There is opacification of the visualized right maxillary antrum. Mastoid air cells are clear. IMPRESSION: 1. No acute intracranial abnormality is demonstrated. 2. Mild chronic small vessel ischemic changes. 3. Minimal right supraorbital scalp soft tissue swelling. 4. Opacification of the limited visualized superior aspect right maxillary antrum. POS: [facility]
--- NOTE | 2018-10-19 19:01 | CT ---
CT CERVICAL SPINE 10/19/18 PROVIDED CLINICAL HISTORY: Fall with neck pain. FINDINGS: Comparison 01/30/18. There is no evidence for fracture or traumatic subluxation. Cervical degenerative changes are again s een. No prevertebral soft tissue swelling apparent. The visualized lung apices demonstrate emphysemat ous change. IMPRESSION: No evidence for fracture or traumatic subluxation. POS: [facility]
== END 2018-10-19 19:47 | disposition home or self-care (01) ==
LOC: ERS 16:46
DX: G40.409 Other generalized epilepsy and epileptic syndromes, not intractable, without status epilepticus (principal); J44.9 Chronic obstructive pulmonary disease, unspecified; E78.5 Hyperlipidemia, unspecified; I10 Essential (primary) hypertension; F32.9 Major depressive disorder, single episode, unspecified; F17.210 Nicotine dependence, cigarettes, uncomplicated
CPT/HCPCS: 36415; 36416; 70450; 72125; 80053; 80185; 84484; 85025; 93005; 96365; J1953

== ENCOUNTER 2019-09-13 12:30 | Inpatient (IN) | payer MEDICARE ==
[2019-09-13 13:23] LABS: #Lymphocytes 1.5 thou/uL (1.20-3.40); #Monocytes 0.7 thou/uL (0.11-0.59); #Neutrophils 6.1 thou/uL (1.40-6.50); %Basophils 0.1 % (0.0-1.0); %Lymphocytes 17.7 % (21.0-51.0); %Monocytes 8.5 % (0.0-10.0); %Neutrophils 73.6 % (42.0-75.0); Hemoglobin 12.5 g/dL (12.0-16.0); Mean Corpuscular HGB CONC 32.2 g/dL (32.0-36.0); Mean Corpuscular Hemoglobin 28.1 pg (27.0-31.0); Mean Corpuscular Volume 87.3 fL (78.0-98.0); Mean Platelet Volume 9.1 fL (7.4-10.4); Platelet Count 199 thou/uL (130-400); RBC Distribution Width 13.3 % (11.5-14.5); Red Blood Cell (RBC) Count 4.43 mill/uL (4.20-5.40); White Blood Cell (WBC) Count 8.3 thou/uL (4.8-10.8)
--- NOTE | 2019-09-13 13:23 | RAD ---
CHEST 1 VIEW: Date: 09/13/19 HISTORY: Shortness of breath, wheezing, dyspnea. COMPARISON: 04/24/18. FINDINGS: Heart size is within normal limits. Increased bronchovascular markings bilaterally, stable. Evidence for some new patchy interstitial and alveolar parenchymal change in the right lower lobe concerning f or minimal pneumonia or pneumonitis. No significant pleural effusion. IMPRESSION: Minimal new appearing patchy parenchymal changes in the right lower lobe, concerning for minimal pneu monia/pneumonitis. Marked atherosclerosis of aorta with ectasia. Otherwise stable chest. POS: [facility]
[2019-09-13 13:47] LABS: ALT (SGPT) 28 U/L (8-55); AST (SGOT) 24 U/L (5-34); Albumin 4.2 g/dL (3.4-4.8); Alkaline Phosphatase 114 U/L (40-110); Anion Gap 14 mmol/L (10-20); BUN (Urea Nitrogen) 8 mg/dL (9.8-20.1); Bilirubin, Total 0.5 mg/dL (0.2-1.2); CK (CPK) 132 U/L (29-168); Calc. Creatinine Clearance 0 mL/min (70-130); Calcium 9.7 mg/dL (7.8-10.44); Carbon Dioxide 28 mmol/L (23-31); Chloride 100 mmol/L (98-107); Estimated GFR-MDRD Greater than 90; Globulin 4.2 g/dL (2.4-3.5); Glucose 127 mg/dL (83-110); Protein, Total 8.4 g/dL (6.0-8.3); Sodium 139 mmol/L (136-145)
[2019-09-13 13:52] LABS: Potassium 2.9 mmol/L (3.5-5.1)
--- NOTE | 2019-09-13 14:44 | CT ---
POSTCONTRAST SOFT TISSUE NECK CT: HISTORY: Throat cancer. Feels mass with shortness of breath. Wheezing upon inspiration. COMPARISON: None. FINDINGS: Visualized brain parenchyma: Grossly unremarkable. Visualized orbits: Grossly unremarkable. Sinuses and mastoid air cells: There is evidence of extensive right maxillary sinus disease with muco sydnie thickening, and a small focus of air attenuation. Chronic sinus disease is suspected. Mild maxillary sinus disease, on the left side. Partial opacification of both mastoid air cells. Aerodigestive tract: Mild nonspecific fullness of the nasopharynx without evidence of an obvious mass . No obvious masses in the oral cavity. Midline fatty raphae of the tongue is preserved. Lingual tonsils are unremarkable. Epiglottis has a normal caliber. Preepiglottic fat is preserved. The suprag lottic, glottic and subglottic larynx are grossly unremarkable. Apposition of the vocal cords is presumed to be due to formation. Paraspinal muscles: Symmetric attenuation of the sternocleidomastoid muscles and paraspinal muscles. Cervical spine: Multilevel degenerative changes of the cervical spine with osteophyte formation. Ther e is no evidence of fracture. Straightening of cervical lordosis is raised. There are varying degrees of central canal stenosis and neural foraminal narrowing on the basis of de generative change. At least qllk-ti-kaysbayu central canal stenosis at C3-C4. Grossly the great vessels of the neck are unremarkable. Multiple hypodense lesions in the thyroid gland, incompletely evaluated. No evidence of lymphadenopathy by size criteria. Appropriate attenuation of the parotid and submandibular glands. Upper mediastinum is unremarkable. Extensive emphysematous changes in the visualized lung apices. Ath erosclerosis of the visualized aorta. IMPRESSION: 1. No obvious masses within the aerodigestive tract. Given patient's history, direct visualization is recommended. 2. Incompletely evaluated thyroid hypodensities. 3. Emphysematous changes of the lung apices. Transcribed Date/Time: 09/13/2019 3:19 PM
[2019-09-13] MEDS ORDERED: cefTRIAXone\\ROCEPHIN 2 GM VIAL ONE (15:45)
[2019-09-13] MEDS ORDERED: Oseltamivir 75 MG CAP PO SCH (16:45)
[2019-09-13] MEDS ORDERED: Azithromycin 500 MG in Sodium Chloride 0.9% 250 ML 250 ML IVPB SCH (16:45)
[2019-09-13] MEDS ORDERED: Azithromycin 500 MG VIAL ONE (16:47)
[2019-09-13] MEDS ORDERED: Acetaminophen 325 MG TAB PO PRN (19:12)
[2019-09-13] MEDS: Sodium Chloride 0.9% 1,000 ML IV SCH (19:55)
[2019-09-13 20:01] VITALS: BMI 21.5
[2019-09-14] MEDS: Sodium Chloride 0.9% 1,000 ML IV SCH (03:11)
[2019-09-14] MEDS ORDERED: Prevnar 13-Val Conj/PF 0.5 ML SYRINGE IM ONE (09:00)
[2019-09-14 11:00] LABS: Anion Gap 12 mmol/L (10-20); BUN (Urea Nitrogen) 9 mg/dL (9.8-20.1); Calc. Creatinine Clearance 83 mL/min (70-130); Calcium 9.5 mg/dL (7.8-10.44); Carbon Dioxide 29 mmol/L (23-31); Chloride 103 mmol/L (98-107); Dilantin Less than 1.8 ug/mL (10.0-20.0); Estimated GFR-MDRD Greater than 90; Glucose 110 mg/dL (83-110); Potassium 4.2 mmol/L (3.5-5.1); Sodium 140 mmol/L (136-145)
[2019-09-14] MEDS ORDERED: Oseltamivir 75 MG CAP PO SCH (11:00)
[2019-09-14] MEDS: methylPREDNISolone Sod Succ 40 MG VIAL IVP SCH ×2 (15:02→19:57)
[2019-09-14] MEDS: cefTRIAXone\\ROCEPHIN 2 GM in Sodium Chloride 0.9% 100 ML IVPB SCH (15:03)
[2019-09-14] MEDS: Azithromycin 500 MG in Sodium Chloride 0.9% 250 ML 250 ML IVPB SCH (16:05)
--- NOTE | 2019-09-14 18:30 | HP ---
CHIEF COMPLAINT: Cough, fever, shortness of breath. HISTORY OF PRESENT ILLNESS: Ms. Salazar is a 69-year-old female with past medical history of seizure disorder, COPD, hypertension, came because of cough, shortness of breath, fever, as well as hoarseness of the voice. nonausea, vomiting. The patient states the cough is productive with yellow sputum, has fever of 101 at home, feeling weak, has headache, body aches. All these symptoms going on for few days. She also feels something in the throat. Feels like a mass in the throat. The patient was evaluated in the ER, found to have influenza B and pneumonia as well. CT of the neck was done and it was negative for any mass. The patient was given a dose of Tamiflu and ceftriaxone and azithromycin in the ER. The patient was also found to be hypokalemic with potassium of 2.9, received KCl replacement, and admitted for further evaluation and management. PAST MEDICAL HISTORY: 1. COPD. 2. Seizure disorder. 3. Hypertension. 4. Hyperlipidemia. 5. Tobacco abuse. PAST SURGICAL HISTORY: Status post hysterectomy, status post removal of cyst from the breast. CURRENT MEDICATIONS: The patient is on; 1. Dilantin 300 mg daily. 2. Keppra 500 b.i.d. 3. Atorvastatin 20 mg daily. 4. Amlodipine 5 mg daily. ALLERGIES: PENICILLIN AND LISINOPRIL. FAMILY HISTORY: Nothing contributory. SOCIAL HISTORY: The patient lives with family. No history of alcohol intake. Smokes one pack a day. REVIEW OF SYSTEMS: CARDIOVASCULAR: No chest pain or shortness of breath. RESPIRATORY: She has fever, cough. Cough productive with yellow sputum. GASTROINTESTINAL: No nausea or vomiting. No abdominal pain symptoms. NEUROLOGIC: No headache. No dizziness. PHYSICAL EXAMINATION: GENERAL: The patient is alert, awake, oriented x3. VITAL SIGNS: Temperature 100.5, pulse 92, respirations 20, blood pressure 120/ 70. HEENT: Head is normocephalic and atraumatic. Pupils are equal and reactive. Nasopharynx is pale and dry. Hard and soft palate, no lesions. SKIN: Turgor decreased. NECK: Supple. No JVD. LUNGS: Breath sounds diminished bilaterally. Percussion dull bilaterally. Expiratory wheeze present. HEART: S1 and S2, regular. ABDOMEN: Soft. No tenderness. No distention. No organomegaly. Bowel sounds present. RECTAL: Deferred. CENTRAL NERVOUS SYSTEM: No focal deficits.. LABORATORY DATA: CBC shows WBC 8.3, hemoglobin 12, hematocrit 38, platelets 199. Metabolic panel; sodium 139, potassium 2.9, chloride 100, CO2 of 28, urea nitrogen 8, creatinine 0.6, and glucose 127. Chest x-ray shows possible infiltrate in the right lower lobe. CT scan of the neck did not reveal any mass. EKG shows normal sinus rhythm, no acute ST changes seen. ASSESSMENT: 1. Pneumonia, right lower lobe. 2. Influenza B. 3. Chronic obstructive pulmonary disease, acute exacerbation. 4. Seizure disorder. 5. Hypertension. 6. Severe hypokalemia. PLAN: 1. Vital signs q.4 hours. 2. Activity as tolerated. 3. Allergies, penicillin and lisinopril. 4. Hep-Lock. 5. Diet, regular. 6. Rocephin 2 g IV piggyback daily. 7. Erythromycin 500 mg daily. 8. DuoNeb q.i.d. 9. Continue home medications. 10. Solu-Medrol 20 IVP q.6. 11. KCl replacement. Job ID: [id number] MTDD
[2019-09-14] MEDS: Mometasone/Formoterol 120 PUFF INHALER INH SCH (19:27)
[2019-09-14] MEDS: Atorvastatin Calcium 20 MG TAB PO SCH (19:58)
[2019-09-14] MEDS: levETIRAcetam 500 MG TAB PO SCH (19:58)
[2019-09-14] MEDS: Oseltamivir 75 MG CAP PO SCH (19:58)
[2019-09-15] MEDS: methylPREDNISolone Sod Succ 40 MG VIAL IVP SCH ×4 (01:06→20:24)
[2019-09-15] MEDS: Mometasone/Formoterol 120 PUFF INHALER INH SCH ×2 (07:23→19:17)
[2019-09-15] MEDS: Amlodipine 5 MG TAB PO SCH (08:08)
[2019-09-15] MEDS: Oseltamivir 75 MG CAP PO SCH ×2 (08:09→20:25)
[2019-09-15] MEDS: levETIRAcetam 500 MG TAB PO SCH ×2 (08:09→20:24)
[2019-09-15] MEDS: cefTRIAXone\\ROCEPHIN 2 GM in Sodium Chloride 0.9% 100 ML IVPB SCH (15:36)
[2019-09-15] MEDS: Azithromycin 500 MG in Sodium Chloride 0.9% 250 ML 250 ML IVPB SCH (15:37)
[2019-09-15] MEDS: Atorvastatin Calcium 20 MG TAB PO SCH (20:24)
[2019-09-16] MEDS: methylPREDNISolone Sod Succ 40 MG VIAL IVP SCH ×2 (01:47→09:08)
[2019-09-16] MEDS: Mometasone/Formoterol 120 PUFF INHALER INH SCH (06:35)
[2019-09-16] MEDS: Oseltamivir 75 MG CAP PO SCH (09:08)
[2019-09-16] MEDS: Amlodipine 5 MG TAB PO SCH (09:08)
[2019-09-16] MEDS: levETIRAcetam 500 MG TAB PO SCH (09:09)
[2019-09-16] MEDS ORDERED: predniSONE 20 MG TAB PO SCH (11:30)
[2019-09-16] MEDS ORDERED: Cefdinir 300 MG CAP PO SCH ×2 (11:30→21:00)
[2019-09-16 15:24] VITALS: BP 162/86; TEMP 98.5
[2019-09-17] MEDS ORDERED: predniSONE 20 MG TAB PO SCH (09:00)
--- NOTE | 2019-09-17 14:54 | DIS ---
DATE OF ADMISSION: 09/13/2019 DATE OF DISCHARGE: 09/16/2019 ADMITTING DIAGNOSES: 1. Pneumonia, right lower lobe. 2. Influenza B. 3. Chronic obstructive pulmonary disease, acute exacerbation. 4. Seizure disorder. 5. Hypertension. 6. Severe hypokalemia. FINAL DIAGNOSES: 1. pneumonia,right lower lobe_. 2. Chronic obstructive pulmonary disease, acute exacerbation. Improved. 3. Severe hypokalemia, corrected. 4. influenza B infection 5. Hypertension. 6. Seizure disorder. BRIEF SUMMARY OF HOSPITAL COURSE: A 69-year-old female admitted because of shortness of breath, cough, fever. The patient was found to have pneumonia right lower lobe. pt was started on IV antibiotics with Rocephen and azithromycin. also pt had inflenza B infection, was started on tamiflu. pt had COPD exacerbation and was treated with Neb treatments and steroids. In the next 2 days pt has improved. she did not have any fever. Her sob improved. cough became less. and was ambulating. in view of improvement ,pt was discharged. she was stable at the time of discharge. her vital signs sere stable. Lungs were clear. Discharge medications: 1. Tamiflu 75mg bid x 2days 2.prednisone in tapering doses. 3. omnicef 300 mg bid for 10 days 4. Dulera inhaler 200/5 2 puffs bid 5. proair inhaler 2 puffs qid 6 [id number] mg tid 7atorvastatin 20 mg qhs 8.Levetiracetam 500 mg bid 9.Amlodipine 5 mg daily. pt will come for follow up in 2 weeks. . Job ID: [id number] [facility]
--- NOTE | 2019-09-18 00:26 | PQF ---
YARELIS DOHERTY VENKAT R MD [id number] CLINICAL DOCUMENTATION CLARIFICATION FORM: POST DISCHARGE Addendum to original discharge summary date: ____ Late entry note date: __ DATE: 09/18/19 ATTN: Scotty Vargas Please exercise your independent, professional judgment in responding to the clarification form. Clinical indicators are provided on the bottom of this form for your review In your clinical opinion based on clinical findings below, can you please identify the condition as the reason for Inpatient admission if due to: Please check appropriate box(s): [ ] Hypokalemia [ y ] Pneumonia [ y ] Influenza B [ y] COPD Excerbation [ ] Other diagnosis [ ] Unable to determine In addition, please specify: Present on Admission (POA): [ y ] Yes [ ] No [ ] Unable to determine For continuity of documentation, please document condition throughout progress notes and discharge summary. Thank You. CLINICAL INDICATORS - SIGNS / SYMPTOMS / LABS H&P p1 09/13 Dr Owen came because of cough and SOB, fever as well as hoarseness of the voice, nonnausea and vomiting H&P p1 09/13 Dr Owen pt states the cough is productive with yellow sputum , has fever of 101 at home, feeling weak, has headache body aches H&P p1 09/13 Dr Owen Evaluated in ER found to have Influenza B abd Pneumonia H&P p1 09/13 Dr Owen Found hypokalemic with potassium of 2.9 RISK FACTORS H&P p1 09/13 COPD H&P p1 09/13 Pneumonia with Influenza B H&P p1 09/13 Hypokalemia TREATMENTS: DEC 11 Tamiflu DEC 11 Ceftriaxone DEC 11 Azithromycin DEC 11 Kcl replacement (This form is maintained as a part of the permanent medical record) 2014 [employer]. All Rights Reserved [email or web address] [not provided] MTDD
== END 2019-09-16 15:35 | disposition home or self-care (01) | DRG 190 ==
LOC: ERS 12:30 → T4-A 17:48
PROVIDERS: ADMIT Internal Medicine; ATTEND Student in an Organized Health Care Education/Training Program
PROC: 3E0234Z Introduction of Serum, Toxoid and Vaccine into Muscle, Percutaneous Approach (ICD-10-PCS; principal; 2019-09-14)
DX: J44.1 Chronic obstructive pulmonary disease with (acute) exacerbation (principal); J10.00 Influenza due to other identified influenza virus with unspecified type of pneumonia; E87.6 Hypokalemia; J44.0 Chronic obstructive pulmonary disease with (acute) lower respiratory infection; G40.909 Epilepsy, unspecified, not intractable, without status epilepticus; I10 Essential (primary) hypertension; E78.5 Hyperlipidemia, unspecified; F17.200 Nicotine dependence, unspecified, uncomplicated; E78.00 Pure hypercholesterolemia, unspecified; Z23 Encounter for immunization; Z88.0 Allergy status to penicillin; Z88.8 Allergy status to other drugs, medicaments and biological substances; Z79.899 Other long term (current) drug therapy; Z85.21 Personal history of malignant neoplasm of larynx
CPT/HCPCS: 36415; 70491; 71045; 80048; 80053; 80177; 80185; 82550; 84484; 85025; 87804; 90471; 90670; 93005; 94640; 94760; G0009; J0456; J0696; J2920; J3490; J7050; J7512; J7620

== ENCOUNTER 2020-01-12 14:36 | Emergency (ER) | payer MEDICARE ==
[~2020-01-12 14:36] MED LIST: Iopamidol-370 76% 500 ML 1 ML ONE
[2020-01-12 15:36] LABS: #Lymphocytes 0.6 thou/uL (1.20-3.40); #Monocytes 0.8 thou/uL (0.11-0.59); %Basophils 0.7 % (0.0-1.0); %Eosinophils 0.1 % (0.0-10.0); %Lymphocytes 10.6 % (21.0-51.0); %Monocytes 14.6 % (0.0-10.0); Hemoglobin 12.5 g/dL (12.0-16.0); Mean Corpuscular Hemoglobin 29.3 pg (27.0-31.0); Mean Corpuscular Volume 86.1 fL (78.0-98.0); Mean Platelet Volume 9.8 fL (7.4-10.4); Platelet Count 156 thou/uL (130-400); RBC Distribution Width 13.2 % (11.5-14.5); Red Blood Cell (RBC) Count 4.27 mill/uL (4.20-5.40); White Blood Cell (WBC) Count 5.4 thou/uL (4.8-10.8)
[2020-01-12 15:54] LABS: ALT (SGPT) 47 U/L (8-55); AST (SGOT) 53 U/L (5-34); Albumin 3.5 g/dL (3.4-4.8); Alkaline Phosphatase 115 U/L (40-110); Anion Gap 12 mmol/L (10-20); BUN (Urea Nitrogen) 13 mg/dL (9.8-20.1); Bilirubin, Total 0.5 mg/dL (0.2-1.2); Calc. Creatinine Clearance 0 mL/min (70-130); Calcium 8.7 mg/dL (7.8-10.44); Carbon Dioxide 27 mmol/L (23-31); Chloride 98 mmol/L (98-107); Estimated GFR-MDRD 88; Globulin 3.7 g/dL (2.4-3.5); Glucose 180 mg/dL (83-110); Protein, Total 7.2 g/dL (6.0-8.3); Sodium 134 mmol/L (136-145)
[2020-01-12 15:57] LABS: Potassium 2.9 mmol/L (3.5-5.1)
[2020-01-12 15:59] LABS: Bacteria/HPF 4+ HPF (None Seen); Bilirubin Negative (Negative); Blood, Urine 2+ (Negative); Clarity Turbid (Clear); Glucose, Urine (Dipstick) Normal (Negative); Leukocyte 500 Leu/uL (Negative); Nitrite Negative (Negative); Protein, Urine (Dipstick) 20 mg/dL (Neg-Trace); RBC/HPF 0-3 HPF (0-3); Squamous Epithelial None Seen HPF (0-3); Urobilinogen Normal mg/dL (Less than 2); WBC/HPF 21-50 HPF (0-3)
[2020-01-12] MEDS ORDERED: Morphine 4 MG/ML VIAL ONE (16:30)
[2020-01-12] MEDS ORDERED: cefTRIAXone\\ROCEPHIN 1 GM VIAL ONE (16:31)
[2020-01-12] MEDS ORDERED: Ondansetron PF 4 MG/2 ML Vial ONE (16:31)
[2020-01-12] MEDS ORDERED: Potassium Chloride 20 MEQ TAB ONE (16:31)
--- NOTE | 2020-01-12 17:00 | CT ---
CT BRAIN WITHOUT CONTRAST: History: Head pain, abdominal pain. Comparison: CT brain, 10-19-18 FINDINGS: The ventricles have normal size and position and are unchanged in appearance from the prior study. Th ere is no evidence of intracranial mass, hemorrhage, or infarct. No acute finding or interval change. Sinuses and mastoids appear clear. IMPRESSION: No acute process identified. POS: [facility]
[2020-01-12] MEDS ORDERED: Acetaminophen 500 MG TAB ONE (17:01)
--- NOTE | 2020-01-12 17:09 | CT ---
CT ABDOMEN AND PELVIS WITH IV CONTRAST: Indications: Abdominal pain, right lower quadrant, flank pain. Comparison: CT abdomen/pelvis 07-30-17 FINDINGS: Images through the lung bases shows parenchymal scarring and nodularity in the right lung base which is stable from the prior study indicating chronic parenchymal change. No acute process. The liver appears unremarkable and stable. There are numerous hyperdensities in the spleen. These have been described on studies dating back to 2012 and appear stable. The pancreas is unremarkable. Review of the kidneys revealed bilateral renal cystic lesions which were described previously. A larg e cyst in the inferior pole of the right kidney has been previously described and is stable measuring 4.5 cm. There is a new area of ill-defined low attenuation in the posterior mid right renal cortex. This is i ll-defined but measures approximately 4.4 cm on coronal images. This could represent focal pyelonephr itis. Close follow up is recommended. It is not well defined and does not have the typical appearance of neoplasm. Left kidney is stable in appearance. The right kidney is also mildly edematous. No hydronephrosis. Urinary bladder unremarkable. Small and large bowel loops are unremarkable. Aorta is normal caliber. Atherosclerotic change. Images through the pelvis show a remarkable uterus which appears stable. There is a large amount of stool in the rectum which could represent impending fecal impaction. Osseous structures are unremarkable. IMPRESSION: 1. New area of low attenuation in the posterior mid right renal cortex. This is indeterminate. Focal pyelonephritis should be excluded. Recommend urologic consultation and close follow up. 2. Renal cystic lesion appears stable. 3. Low density lesions in the spleen appear stable. 4. Chronic parenchymal changes in the lung bases appear stable. 5. Large amount of stool in dilated rectum. POS: [facility]
--- NOTE | 2020-01-18 09:59 | EKG ---
Test Reason : Blood Pressure : / mmHG Vent. Rate : 082 BPM Atrial Rate : 082 BPM P-R Int : 164 ms QRS Dur : 092 ms QT Int : 374 ms P-R-T Axes : 055 024 045 degrees QTc Int : 436 ms Normal sinus rhythm Possible Left atrial enlargement Borderline ECG Confirmed by GLADIS MATHEWS ([id number]), editor trade journal DIMAS MEYERS ([id number]) on 01/18/2020 9:58:56 AM Referred By: Confirmed By:GLADIS MATHEWS
== END 2020-01-12 19:57 | disposition home or self-care (01) ==
LOC: ERS 14:36
DX: N39.0 Urinary tract infection, site not specified (principal); R10.9 Unspecified abdominal pain; E87.6 Hypokalemia; F32.9 Major depressive disorder, single episode, unspecified; J44.9 Chronic obstructive pulmonary disease, unspecified; E78.00 Pure hypercholesterolemia, unspecified; E78.5 Hyperlipidemia, unspecified; I10 Essential (primary) hypertension; F17.210 Nicotine dependence, cigarettes, uncomplicated; Z79.899 Other long term (current) drug therapy
CPT/HCPCS: 70450; 74177; 80053; 83605; 85025; 93005; J0696; J2270; J2405; Q9967; 36415; 51701; 81003; 81015; 96365; 96375

== ENCOUNTER 2020-02-03 11:13 | Outpatient (CLI) | payer MEDICARE, OTHER ==
--- NOTE | 2020-02-03 12:56 | RAD ---
EXAM: Two views chest PROVIDED CLINICAL HISTORY: Preoperative evaluation. COMPARISON: 09/13/2019 FINDINGS: Cardiac silhouette and pulmonary vasculature are within normal limits. Mild linear scarring is seen at the lateral right lung base and in the right upper lung zone. No consolidation or pleural fluid is seen. Stable prominence of the aortic arch with vascular calcifications seen. IMPRESSION: 1. Minimal chronic lung changes without evidence of an acute cardiopulmonary process. 2. Stable prominence of the aortic arch.
[2020-02-03 13:23] LABS: #Lymphocytes 1.4 thou/uL (1.20-3.40); #Monocytes 0.3 thou/uL (0.11-0.59); %Basophils 0.7 % (0.0-1.0); %Eosinophils 0.4 % (0.0-10.0); %Neutrophils 52.8 % (42.0-75.0); Hemoglobin 12.7 g/dL (12.0-16.0); Mean Corpuscular HGB CONC 31.2 g/dL (32.0-36.0); Mean Corpuscular Hemoglobin 27.9 pg (27.0-31.0); Mean Corpuscular Volume 89.3 fL (78.0-98.0); Mean Platelet Volume 9.3 fL (7.4-10.4); Platelet Count 180 thou/uL (130-400); RBC Distribution Width 14.9 % (11.5-14.5); Red Blood Cell (RBC) Count 4.57 mill/uL (4.20-5.40); White Blood Cell (WBC) Count 3.8 thou/uL (4.8-10.8)
[2020-02-03 13:41] LABS: Anion Gap 12 mmol/L (10-20); BUN (Urea Nitrogen) 7 mg/dL (9.8-20.1); Calc. Creatinine Clearance 0 mL/min (70-130); Calcium 9.4 mg/dL (7.8-10.44); Carbon Dioxide 26 mmol/L (23-31); Chloride 105 mmol/L (98-107); Estimated GFR-MDRD Greater than 90; Glucose 87 mg/dL (83-110); Potassium 3.7 mmol/L (3.5-5.1); Sodium 139 mmol/L (136-145)
[2020-02-03 18:50] LABS: SARS-CoV-2 MS2 Positive; SARS-CoV-2 N Gene Negative; SARS-CoV-2 S Gene Negative; SARS-CoV-2 orf1ab Negative
--- NOTE | 2020-02-09 15:36 | EKG ---
Test Reason : Blood Pressure : / mmHG Vent. Rate : 069 BPM Atrial Rate : 069 BPM P-R Int : 176 ms QRS Dur : 072 ms QT Int : 388 ms P-R-T Axes : 058 068 072 degrees QTc Int : 415 ms Normal sinus rhythm Possible Left atrial enlargement Borderline ECG When compared with ECG of 12-JAN-2020 15:42, No significant change was found Confirmed by MANUEL WINTERS ([id number]) on 02/09/2020 3:35:51 PM Referred By: KADY Confirmed By:MANUEL WINTERS
== END 2020-02-03 11:14 | disposition home or self-care (01) ==
LOC: LABBT 11:13
PROVIDERS: ATTEND Specialist
DX: Z01.818 Encounter for other preprocedural examination (principal); Z11.59 Encounter for screening for other viral diseases; C14.0 Malignant neoplasm of pharynx, unspecified; J98.4 Other disorders of lung
CPT/HCPCS: 71046; 80048; 85025; 87635; 93005; 93010; U0003

== ENCOUNTER 2020-02-06 09:06 | Day surgery (SDC) | payer MEDICARE ==
[2020-02-06] MEDS ORDERED: Acetaminophen 500 MG TAB ONE (09:52)
[2020-02-06] MEDS ORDERED: Ketorolac Tromethamine 30 MG/ML VIAL ONE (09:52)
[2020-02-06] MEDS ORDERED: Lidocaine 1% PF 5 ML VIAL ONE (10:26)
[2020-02-06] MEDS ORDERED: PROPOFOL 200 MG/20 ML VIAL ONE (10:26)
[2020-02-06] MEDS ORDERED: Lidocaine 1% w/Epinephrine 1:100K 20 ML VIAL ONE (11:40)
[2020-02-06] MEDS ORDERED: Sodium Chloride 0.9% 30 ML ONE (11:40)
[2020-02-06] MEDS ORDERED: Bupivacaine 0.25% HCL 30 ML VIAL ONE (11:40)
[2020-02-06] MEDS ORDERED: Fentanyl 100 MCG/2 ML VIAL ONE (12:14)
--- NOTE | 2020-02-06 13:25 | RAD ---
PORTABLE CHEST 1 VIEW: DATE: 02/06/2020. TIME: 1:10 PM. HISTORY: MediPort placement. FINDINGS: Comparison is made with the exam of 02/03/2020. There has been interval placement of a right subclavian Port-A-Cath with tip in the projection of the SVC. No pneumothorax is seen. The heart size is normal. The aorta is tortuous. Mild chronic child ges are again noted. No lobar consolidation or pleural effusions are identified. IMPRESSION: No acute process. POS: [facility]
--- NOTE | 2020-02-07 10:32 | OP ---
DATE OF PROCEDURE: 02/06/2020 PREOPERATIVE DIAGNOSIS: Laryngeal cancer. POSTOPERATIVE DIAGNOSIS: Laryngeal cancer. PROCEDURE PERFORMED: Placement of right subclavian low-profile power compatible MediPort. ANESTHESIA: General with laryngeal mask airway. INDICATIONS: The patient is a 69-year-old black female. She has recurrent laryngeal cancer. MediPort placement was requested for chemotherapy administration. DESCRIPTION OF PROCEDURE: Informed consent was obtained. The patient was taken to the operating room where total intravenous anesthesia was obtained with the patient in supine position. Right bambi-clavicular area was prepped with ChloraPrep and draped in sterile fashion. Local anesthetic was infiltrated and a large-gauge needle was passed under the clavicle in the subclavian vein. Guidewire was passed through the needle and fluoroscopically confirmed to enter the superior vena cava. Additional local anesthetic was infiltrated and transverse incision was created based on needle insertion site. A subcutaneous pocket was dissected inferiorly. Introducer dilator was passed over the guidewire under fluoroscopic guidance. The guidewire and dilator were removed, and the catheter was passed through the introducer. The tip of the catheter was positioned at the atriocaval junction and the catheter was trimmed to the appropriate length and secured to the locking hub of the MediPort. The port was then placed in the subcutaneous pocket where it was secured to the pectoral fascia with 2 interrupted sutures of 3-0 Prolene. The incision was then closed in layers with 3-0 and 4-0 Monocryl. Additional local anesthetic was infiltrated. The port was cannulated with a Santana needle and it aspirated blood freely and was flushed with heparinized saline. Dermabond was placed externally on the skin incision. There were no complications. Blood loss was negligible. The patient tolerated the procedure well and was taken to recovery room in stable condition. FINDINGS: A low-profile port was selected secondary to the patient's body habitus. It was placed uneventfully into the right subclavian vein. Fluoroscopy was used throughout the procedure. There were no complications. The patient tolerated the procedure well. Job ID: [id number]
== END 2020-02-06 14:40 | disposition home or self-care (01) ==
LOC: SDC 09:06
PROVIDERS: ATTEND Specialist
PROC: 02HV33Z Insertion of Infusion Device into Superior Vena Cava, Percutaneous Approach (ICD-10-PCS; principal; 2020-02-06)
PROC: B518ZZA Fluoroscopy of Superior Vena Cava, Guidance (ICD-10-PCS; 2020-02-06)
DX: C32.9 Malignant neoplasm of larynx, unspecified (principal); E78.00 Pure hypercholesterolemia, unspecified; J44.9 Chronic obstructive pulmonary disease, unspecified; I10 Essential (primary) hypertension; G40.909 Epilepsy, unspecified, not intractable, without status epilepticus; F17.210 Nicotine dependence, cigarettes, uncomplicated; Z79.899 Other long term (current) drug therapy; Z88.0 Allergy status to penicillin
CPT/HCPCS: 36561; 71045; C1788; J0690; J1642; J1885; J2001; J2704; J3010; S0020

== ENCOUNTER 2020-02-12 09:59 | Day surgery (SDC) | payer MEDICARE ==
[~2020-02-12 09:59] MED LIST changes: +CARBOplatin 550 MG in Sodium Chloride 0.9% 250 ML 250 ML IVPB SCH; +DOCETAXEL IVPB SCH; +Dexamethasone 10 MG in Sodium Chloride 0.9% 50 ML IVPB SCH; -Iopamidol-370 76% 500 ML 1 ML ONE; +Palonosetron HCl 0.25 MG in Sodium Chloride 0.9% 50 ML IVPB SCH; +SODIUM CHLORIDE 0.9% IVPB SCH
[2020-02-12] MEDS ORDERED: Sodium Chloride 0.9% 20 ML ONE (10:15)
[2020-02-12 11:15] VITALS: BP 144/91; TEMP 98.7
== END 2020-02-12 13:52 | disposition home or self-care (01) ==
LOC: ONC/OP 09:59
PROVIDERS: ATTEND Internal Medicine Hematology & Oncology
DX: Z51.11 Encounter for antineoplastic chemotherapy (principal); C32.8 Malignant neoplasm of overlapping sites of larynx; Z88.0 Allergy status to penicillin
CPT/HCPCS: 96375; 96413; 96417; J1100; J1453; J1642; J2469; J3490; J7050; J9045; J9171

== ENCOUNTER 2020-02-13 11:02 | Day surgery (SDC) | payer MEDICARE ==
[~2020-02-13 11:02] MED LIST changes: -CARBOplatin 550 MG in Sodium Chloride 0.9% 250 ML 250 ML IVPB SCH; -DOCETAXEL IVPB SCH; -Dexamethasone 10 MG in Sodium Chloride 0.9% 50 ML IVPB SCH; +PEGFILGRASTIM-JMDB 6 MG/0.6 ML SYRINGE SQ SCH; -Palonosetron HCl 0.25 MG in Sodium Chloride 0.9% 50 ML IVPB SCH; -SODIUM CHLORIDE 0.9% IVPB SCH
[2020-02-13 13:03] VITALS: BP 131/79; TEMP 98.6
== END 2020-02-13 13:24 | disposition home or self-care (01) ==
LOC: ONC/OP 11:02
PROVIDERS: ATTEND Internal Medicine Hematology & Oncology
DX: C32.8 Malignant neoplasm of overlapping sites of larynx (principal); Z88.0 Allergy status to penicillin
CPT/HCPCS: 96372; Q5108

== ENCOUNTER 2020-03-04 10:05 | Day surgery (SDC) | payer MEDICARE, OTHER ==
[~2020-03-04 10:05] MED LIST changes: +CARBOplatin 550 MG in Sodium Chloride 0.9% 250 ML 250 ML IVPB SCH; +DOCETAXEL IVPB SCH; -PEGFILGRASTIM-JMDB 6 MG/0.6 ML SYRINGE SQ SCH; +Palonosetron HCl 0.25 MG in Sodium Chloride 0.9% 50 ML IVPB SCH; +SODIUM CHLORIDE 0.9% IVPB SCH
[2020-03-04] MEDS ORDERED: Sodium Chloride 0.9% 20 ML ONE (11:06)
[2020-03-04 11:17] VITALS: BP 157/91; TEMP 98.6
[2020-03-04] MEDS ORDERED: SODIUM CHLORIDE 0.9% IVPB SCH (14:15)
[2020-03-04] MEDS ORDERED: CARBOPLATIN IVPB SCH (14:15)
== END 2020-03-04 16:06 | disposition home or self-care (01) ==
LOC: ONC/OP 10:05
PROVIDERS: ATTEND Internal Medicine Hematology & Oncology
DX: Z51.11 Encounter for antineoplastic chemotherapy (principal); C32.8 Malignant neoplasm of overlapping sites of larynx; Z88.0 Allergy status to penicillin
CPT/HCPCS: 36415; 80053; 82248; 83615; 84100; 84550; 96367; 96375; 96413; 96417; J1100; J1453; J1642; J2469; J3490; J7050; J9045; J9171

== ENCOUNTER 2020-03-05 12:07 | Day surgery (SDC) | payer MEDICARE ==
[~2020-03-05 12:07] MED LIST changes: -CARBOplatin 550 MG in Sodium Chloride 0.9% 250 ML 250 ML IVPB SCH; -DOCETAXEL IVPB SCH; +PEGFILGRASTIM-JMDB 6 MG/0.6 ML SYRINGE SQ SCH; -Palonosetron HCl 0.25 MG in Sodium Chloride 0.9% 50 ML IVPB SCH; -SODIUM CHLORIDE 0.9% IVPB SCH
[2020-03-05 12:17] VITALS: BP 134/72; TEMP 98.5
== END 2020-03-05 12:18 | disposition home or self-care (01) ==
LOC: ONC/OP 12:07
PROVIDERS: ATTEND Internal Medicine Hematology & Oncology
DX: C32.8 Malignant neoplasm of overlapping sites of larynx (principal); Z88.0 Allergy status to penicillin
CPT/HCPCS: 96372; Q5108

== ENCOUNTER 2020-03-25 11:09 | Day surgery (SDC) | payer MEDICARE ==
[~2020-03-25 11:09] MED LIST changes: +CARBOPLATIN IVPB SCH; +DOCETAXEL IVPB SCH; -PEGFILGRASTIM-JMDB 6 MG/0.6 ML SYRINGE SQ SCH; +Palonosetron HCl 0.25 MG in Sodium Chloride 0.9% 50 ML IVPB SCH; +SODIUM CHLORIDE 0.9% IVPB SCH
[2020-03-25] MEDS ORDERED: Sodium Chloride 0.9% 20 ML ONE (11:16)
[2020-03-25 11:21] VITALS: BP 156/82; TEMP 98.1
== END 2020-03-25 14:11 | disposition home or self-care (01) ==
LOC: ONC/OP 11:09
PROVIDERS: ATTEND Internal Medicine Hematology & Oncology
DX: Z51.11 Encounter for antineoplastic chemotherapy (principal); C32.8 Malignant neoplasm of overlapping sites of larynx; Z88.0 Allergy status to penicillin
CPT/HCPCS: 36415; 80053; 82248; 83615; 84100; 84550; 96367; 96375; 96413; 96417; J1100; J1453; J1642; J2469; J3490; J7050; J9045; J9171

== ENCOUNTER 2020-03-26 13:08 | Day surgery (SDC) | payer MEDICARE ==
[~2020-03-26 13:08] MED LIST changes: -CARBOPLATIN IVPB SCH; -DOCETAXEL IVPB SCH; +PEGFILGRASTIM-JMDB 6 MG/0.6 ML SYRINGE SQ SCH; -Palonosetron HCl 0.25 MG in Sodium Chloride 0.9% 50 ML IVPB SCH; -SODIUM CHLORIDE 0.9% IVPB SCH
[2020-03-26 13:34] VITALS: BP 102/65; TEMP 98.6
== END 2020-03-26 13:35 | disposition home or self-care (01) ==
LOC: ONC/OP 13:08
PROVIDERS: ATTEND Internal Medicine Hematology & Oncology
DX: C32.8 Malignant neoplasm of overlapping sites of larynx (principal); Z88.0 Allergy status to penicillin
CPT/HCPCS: 96372; Q5108

== ENCOUNTER 2020-06-03 10:07 | Day surgery (SDC) | payer MEDICARE ==
[~2020-06-03 10:07] MED LIST changes: +CARBOPLATIN IVPB SCH; +DOCETAXEL IVPB SCH; -PEGFILGRASTIM-JMDB 6 MG/0.6 ML SYRINGE SQ SCH; +Palonosetron HCl 0.25 MG in Sodium Chloride 0.9% 50 ML IVPB SCH; +SODIUM CHLORIDE 0.9% IVPB SCH
[2020-06-03] MEDS ORDERED: Sodium Chloride 0.9% 20 ML ONE (10:21)
[2020-06-03 10:49] VITALS: BP 149/85; TEMP 98.1
== END 2020-06-03 14:38 | disposition home or self-care (01) ==
LOC: ONC/OP 10:07
PROVIDERS: ATTEND Internal Medicine Hematology & Oncology
DX: Z51.11 Encounter for antineoplastic chemotherapy (principal); C32.8 Malignant neoplasm of overlapping sites of larynx; Z88.0 Allergy status to penicillin
CPT/HCPCS: 36415; 80053; 82248; 83615; 84100; 84550; 96367; 96375; 96413; 96417; J1100; J1453; J1642; J2469; J3490; J7050; J9045; J9171

== ENCOUNTER 2020-06-04 09:47 | Day surgery (SDC) | payer MEDICARE ==
[~2020-06-04 09:47] MED LIST changes: -CARBOPLATIN IVPB SCH; -DOCETAXEL IVPB SCH; +PEGFILGRASTIM-JMDB 6 MG/0.6 ML SYRINGE SQ SCH; -Palonosetron HCl 0.25 MG in Sodium Chloride 0.9% 50 ML IVPB SCH; -SODIUM CHLORIDE 0.9% IVPB SCH
[2020-06-04 09:50] VITALS: BP 146/74; TEMP 98.4
== END 2020-06-04 09:53 | disposition home or self-care (01) ==
LOC: ONC/OP 09:47
PROVIDERS: ATTEND Internal Medicine Hematology & Oncology
DX: Z51.89 Encounter for other specified aftercare (principal); C32.8 Malignant neoplasm of overlapping sites of larynx; Z88.0 Allergy status to penicillin
CPT/HCPCS: 96372; Q5108

== ENCOUNTER 2020-06-24 09:43 | Day surgery (SDC) | payer MEDICARE ==
[~2020-06-24 09:43] MED LIST changes: +CARBOplatin 650 MG in Sodium Chloride 0.9% 250 ML 250 ML IVPB SCH; +DOCETAXEL IVPB SCH; -PEGFILGRASTIM-JMDB 6 MG/0.6 ML SYRINGE SQ SCH; +Palonosetron HCl 0.25 MG in Sodium Chloride 0.9% 50 ML IVPB SCH; +SODIUM CHLORIDE 0.9% IVPB SCH
[2020-06-24] MEDS ORDERED: Sodium Chloride 0.9% 20 ML ONE (09:54)
[2020-06-24 10:08] VITALS: BP 125/74; TEMP 98.6
== END 2020-06-24 14:08 | disposition home or self-care (01) ==
LOC: ONC/OP 09:43
PROVIDERS: ATTEND Internal Medicine Hematology & Oncology
DX: Z51.11 Encounter for antineoplastic chemotherapy (principal); C32.8 Malignant neoplasm of overlapping sites of larynx; Z88.0 Allergy status to penicillin
CPT/HCPCS: 80053; 82248; 83615; 84100; 84550; 96367; 96375; 96413; 96417; J1100; J1453; J1642; J2469; J3490; J7050; J9045; J9171

== ENCOUNTER 2020-06-25 10:01 | Day surgery (SDC) | payer MEDICARE ==
[~2020-06-25 10:01] MED LIST changes: -CARBOplatin 650 MG in Sodium Chloride 0.9% 250 ML 250 ML IVPB SCH; -DOCETAXEL IVPB SCH; +PEGFILGRASTIM-JMDB 6 MG/0.6 ML SYRINGE SQ SCH; -Palonosetron HCl 0.25 MG in Sodium Chloride 0.9% 50 ML IVPB SCH; -SODIUM CHLORIDE 0.9% IVPB SCH
[2020-06-25 10:54] VITALS: BP 154/79; TEMP 98.5
== END 2020-06-25 10:54 | disposition home or self-care (01) ==
LOC: ONC/OP 10:01
PROVIDERS: ATTEND Internal Medicine Hematology & Oncology
DX: Z51.89 Encounter for other specified aftercare (principal); C32.8 Malignant neoplasm of overlapping sites of larynx; Z88.0 Allergy status to penicillin
CPT/HCPCS: 96372; Q5108

== ENCOUNTER 2021-01-11 20:20 | Inpatient (IN) | payer MEDICARE, OTHER ==
[2021-01-11] MEDS ORDERED: Ondansetron PF 4 MG/2 ML Vial ONE (20:59)
[2021-01-11 21:03] LABS: #Lymphocytes 0.6 thou/uL (1.20-3.40); #Monocytes 0.3 thou/uL (0.11-0.59); #Neutrophils 6.2 thou/uL (1.40-6.50); %Basophils 0.2 % (0.0-1.0); %Eosinophils 0.2 % (0.0-10.0); %Lymphocytes 8.7 % (21.0-51.0); %Monocytes 4.3 % (0.0-10.0); %Neutrophils 86.6 % (42.0-75.0); Hemoglobin 11.8 g/dL (12.0-16.0); Mean Corpuscular HGB CONC 32.4 g/dL (32.0-36.0); Mean Corpuscular Hemoglobin 29.5 pg (27.0-31.0); Mean Corpuscular Volume 91.1 fL (78.0-98.0); Mean Platelet Volume 8.6 fL (7.4-10.4); Platelet Count 175 thou/uL (130-400); RBC Distribution Width 13.3 % (11.5-14.5); Red Blood Cell (RBC) Count 4.01 mill/uL (4.20-5.40); White Blood Cell (WBC) Count 7.2 thou/uL (4.8-10.8)
[2021-01-11] MEDS ORDERED: Lorazepam 2 MG/ML VIAL ONE (21:17)
[2021-01-11 21:22] LABS: ALT (SGPT) 11 U/L (8-55); AST (SGOT) 15 U/L (5-34); Albumin 3.8 g/dL (3.4-4.8); Alkaline Phosphatase 87 U/L (40-110); Anion Gap 12 mmol/L (10-20); BUN (Urea Nitrogen) 10 mg/dL (9.8-20.1); Bilirubin, Total 0.3 mg/dL (0.2-1.2); Calc. Creatinine Clearance 0 mL/min (70-130); Calcium 8.8 mg/dL (7.8-10.44); Carbon Dioxide 26 mmol/L (23-31); Chloride 102 mmol/L (98-107); Globulin 3.3 g/dL (2.4-3.5); Glucose 115 mg/dL (83-110); Potassium 3.3 mmol/L (3.5-5.1); Protein, Total 7.1 g/dL (5.8-8.1); Sodium 137 mmol/L (136-145)
[2021-01-11] MEDS ORDERED: SODIUM CHLORIDE 0.9% IVPB SCH (21:45)
[2021-01-11] MEDS ORDERED: FOSPHENYTOIN SODIUM IVPB SCH (21:45)
[2021-01-11 22:07] LABS: Bacteria/HPF None Seen HPF (None Seen); Bilirubin Negative (Negative); Blood, Urine 2+ (Negative); Clarity Clear (Clear); Glucose, Urine (Dipstick) Normal (Negative); Ketone, Urine Negative (Negative); Leukocyte Negative Leu/uL (Negative); Nitrite Negative (Negative); Protein, Urine (Dipstick) 30 mg/dL (Neg-Trace); Specific Gravity, Urine 1.016 (1.002-1.036); Squamous Epithelial 0-3 HPF (0-3); Urobilinogen Normal mg/dL (Less than 2); WBC/HPF 0-3 HPF (0-3); pH, Urine 6.5 (5.0-9.0)
[2021-01-11] MEDS ORDERED: Lorazepam 2 MG/ML VIAL SLOW IVP PRN (22:25)
[2021-01-11] MEDS ORDERED: Ondansetron PF 4 MG/2 ML Vial IVP PRN (22:28)
[2021-01-11] MEDS ORDERED: Acetaminophen 650 MG Suppository PR PRN (22:28)
[2021-01-11] MEDS ORDERED: Ondansetron ODT 4 MG TAB PO PRN (22:28)
[2021-01-12 05:05] LABS: SARS-CoV-2 PCR by NAA Not Detected (NotDetected)
[2021-01-12 06:16] LABS: #Lymphocytes 1.2 thou/uL (1.20-3.40); #Monocytes 0.6 thou/uL (0.11-0.59); #Neutrophils 4.2 thou/uL (1.40-6.50); %Basophils 0.2 % (0.0-1.0); %Eosinophils 0.2 % (0.0-10.0); %Lymphocytes 19.6 % (21.0-51.0); %Monocytes 9.6 % (0.0-10.0); %Neutrophils 70.5 % (42.0-75.0); Hemoglobin 11.2 g/dL (12.0-16.0); Mean Corpuscular HGB CONC 32.4 g/dL (32.0-36.0); Mean Corpuscular Hemoglobin 29.4 pg (27.0-31.0); Mean Corpuscular Volume 90.8 fL (78.0-98.0); Mean Platelet Volume 9.1 fL (7.4-10.4); Platelet Count 158 thou/uL (130-400); RBC Distribution Width 13.1 % (11.5-14.5)
[2021-01-12 06:31] LABS: Anion Gap 16 mmol/L (10-20); BUN (Urea Nitrogen) 7 mg/dL (9.8-20.1); Calc. Creatinine Clearance 92 mL/min (70-130); Calcium 8.6 mg/dL (7.8-10.44); Carbon Dioxide 24 mmol/L (23-31); Chloride 100 mmol/L (98-107); Glucose 103 mg/dL (83-110); Sodium 137 mmol/L (136-145)
[2021-01-12 06:35] LABS: Potassium 2.9 mmol/L (3.5-5.1)
[2021-01-12] MEDS ORDERED: Potassium Phosphate 30 MMOL in Sodium Chloride 0.9% 250 ML 250 ML IVPB SCH (08:00)
[2021-01-12] MEDS: Acetaminophen 325 MG TAB PO PRN ×2 (16:03→21:58)
[2021-01-12 16:33] VITALS: BMI 23.1
[2021-01-12] MEDS: Amlodipine 5 MG TAB PO SCH (21:57)
[2021-01-12] MEDS: levETIRAcetam 500 MG TAB PO SCH (21:58)
[2021-01-13 08:26] LABS: #Basophils 0.1 thou/uL (0.0-0.2); #Lymphocytes 1.9 thou/uL (1.20-3.40); #Monocytes 0.5 thou/uL (0.11-0.59); #Neutrophils 2.6 thou/uL (1.40-6.50); %Basophils 1.2 % (0.0-1.0); %Eosinophils 0.2 % (0.0-10.0); %Lymphocytes 37.6 % (21.0-51.0); %Monocytes 10.6 % (0.0-10.0); %Neutrophils 50.5 % (42.0-75.0); Hemoglobin 12.2 g/dL (12.0-16.0); Mean Corpuscular HGB CONC 32.9 g/dL (32.0-36.0); Mean Corpuscular Hemoglobin 29.9 pg (27.0-31.0); Mean Corpuscular Volume 91.1 fL (78.0-98.0); Mean Platelet Volume 8.6 fL (7.4-10.4); Platelet Count 180 thou/uL (130-400); RBC Distribution Width 13.2 % (11.5-14.5); Red Blood Cell (RBC) Count 4.07 mill/uL (4.20-5.40); White Blood Cell (WBC) Count 5.1 thou/uL (4.8-10.8)
[2021-01-13 08:39] LABS: Anion Gap 14 mmol/L (10-20); BUN (Urea Nitrogen) 9 mg/dL (9.8-20.1); Calc. Creatinine Clearance 73 mL/min (70-130); Calcium 9.2 mg/dL (7.8-10.44); Carbon Dioxide 27 mmol/L (23-31); Chloride 101 mmol/L (98-107); Glucose 97 mg/dL (83-110); Potassium 3.3 mmol/L (3.5-5.1); Sodium 139 mmol/L (136-145)
[2021-01-13] MEDS: levETIRAcetam 500 MG TAB PO SCH (09:02)
[2021-01-13] MEDS: Amlodipine 5 MG TAB PO SCH (09:02)
[2021-01-13] MEDS ORDERED: Iopamidol-370 76% 500 ML 1 ML ONE (13:00)
[2021-01-13 15:44] VITALS: BP 120/81; TEMP 98.2
[2021-01-13] MEDS ORDERED: Potassium Chloride 20 MEQ TAB PO SCH (16:30)
[2021-01-13] MEDS ORDERED: Atorvastatin Calcium 20 MG TAB PO SCH (21:00)
== END 2021-01-13 17:39 | disposition home or self-care (01) | DRG 101 ==
LOC: ERS 20:20 → ERHOLD 21:50 → 2SE 01-12 15:37 → OBSVTOIN 01-12 16:07
PROVIDERS: ADMIT Student in an Organized Health Care Education/Training Program; ATTEND Internal Medicine
DX: G40.909 Epilepsy, unspecified, not intractable, without status epilepticus (principal); J96.11 Chronic respiratory failure with hypoxia; J44.9 Chronic obstructive pulmonary disease, unspecified; E78.00 Pure hypercholesterolemia, unspecified; E78.5 Hyperlipidemia, unspecified; F32.9 Major depressive disorder, single episode, unspecified; I10 Essential (primary) hypertension; D64.9 Anemia, unspecified; Z20.822 Contact with and (suspected) exposure to COVID-19; R22.1 Localized swelling, mass and lump, neck; E87.6 Hypokalemia; Z90.710 Acquired absence of both cervix and uterus; Z88.0 Allergy status to penicillin; Z87.891 Personal history of nicotine dependence; Z79.51 Long term (current) use of inhaled steroids; Z79.899 Other long term (current) drug therapy; Z91.14 Patient's other noncompliance with medication regimen
CPT/HCPCS: 36415; 51701; 70450; 70491; 71045; 72125; 80048; 80053; 80185; 81003; 81015; 83735; 84443; 85025; 87086; 87635; 93005; 95712; 95819; 95957; 96365; 96375; G0378; J2060; J2405; J7050; Q2009; Q9967; U0003; U0005

== ENCOUNTER 2021-01-21 11:00 | Outpatient (CLI) | payer MEDICARE | END 2021-01-21 11:01 | disposition home or self-care (01) | LOC: PET 11:00 | PROVIDERS: ATTEND Internal Medicine Hematology & Oncology | DX: C32.9 Malignant neoplasm of larynx, unspecified (principal); R93.0 Abnormal findings on diagnostic imaging of skull and head, not elsewhere classified; R93.89 Abnormal findings on diagnostic imaging of other specified body structures | CPT/HCPCS: 78815; A9552 ==

== ENCOUNTER 2021-02-19 14:53 | Outpatient (CLI) | payer MEDICARE ==
[2021-02-19 15:29] LABS: Hemoglobin 12.2 g/dL (12.0-15.5)
[2021-02-19 15:52] LABS: Anion Gap 13 mmol/L (10-20); BUN (Urea Nitrogen) 13 mg/dL (9.8-20.1); Calc. Creatinine Clearance 0 mL/min (70-130); Calcium 9.2 mg/dL (7.8-10.44); Carbon Dioxide 29 mmol/L (23-31); Chloride 101 mmol/L (98-107); Glucose 72 mg/dL (83-110); Potassium 3.5 mmol/L (3.5-5.1); Sodium 139 mmol/L (136-145)
[2021-02-20 00:41] LABS: SARS-CoV-2 PCR by NAA Not Detected (NotDetected)
== END 2021-02-19 14:54 | disposition home or self-care (01) ==
LOC: LABBT 14:53
PROVIDERS: ATTEND Otolaryngology Plastic Surgery within the Head & Neck
DX: Z01.818 Encounter for other preprocedural examination (principal); Z85.21 Personal history of malignant neoplasm of larynx; R22.1 Localized swelling, mass and lump, neck; R49.0 Dysphonia; Z20.822 Contact with and (suspected) exposure to COVID-19
CPT/HCPCS: 80048; 85014; 85018; U0003; U0005; 87635; 93005; 93010

== ENCOUNTER 2021-02-24 08:55 | Day surgery (SDC) | payer MEDICARE ==
[2021-02-23 10:18] VITALS: BMI 23.8
[2021-02-24] MEDS ORDERED: Acetaminophen 500 MG TAB ONE (10:50)
[2021-02-24] MEDS ORDERED: EPINEPHrine 1 MG/ML AMP ONE (11:01)
[2021-02-24] MEDS ORDERED: Midazolam HCl 2 mg/2 ml Vial ONE (11:04)
[2021-02-24] MEDS ORDERED: Fentanyl 100 MCG/2 ML VIAL ONE (11:04)
[2021-02-24] MEDS ORDERED: Propofol 500 MG/50 ML VIAL ONE (11:09)
[2021-02-24] MEDS ORDERED: Lidocaine 1% PF 5 ML VIAL ONE (11:42)
[2021-02-24] MEDS ORDERED: Succinylcholine 200 MG/10 ml SYRINGE FS ONE (11:42)
[2021-02-24] MEDS ORDERED: Ondansetron PF 4 MG/2 ML Vial ONE (11:42)
[2021-02-24] MEDS ORDERED: EPINEPHrine 1 MG/10 ML Abboject SYRINGE ONE (11:42)
[2021-02-24] MEDS ORDERED: Dexamethasone 20 MG/5 ML VIAL ONE (11:42)
[2021-02-24] MEDS ORDERED: Hydrocodone-Acetamin 15 ML UDCUP ONE (13:34)
== END 2021-02-24 14:20 | disposition home or self-care (01) ==
LOC: SDC 08:55
PROVIDERS: ATTEND Otolaryngology Plastic Surgery within the Head & Neck
PROC: 0CBR8ZX Excision of Epiglottis, Via Natural or Artificial Opening Endoscopic, Diagnostic (ICD-10-PCS; principal; 2021-02-24)
DX: C32.3 Malignant neoplasm of laryngeal cartilage (principal); J38.2 Nodules of vocal cords; J45.909 Unspecified asthma, uncomplicated; I10 Essential (primary) hypertension; F17.200 Nicotine dependence, unspecified, uncomplicated; Z85.21 Personal history of malignant neoplasm of larynx; Z79.899 Other long term (current) drug therapy; Z88.0 Allergy status to penicillin
CPT/HCPCS: 88305; 88313; 88341; 88342; J0171; J1100; J2250; J2405; J2704; J3010

== ENCOUNTER 2021-03-12 13:56 | Outpatient (CLI) | payer MEDICARE ==
[2021-03-12 17:06] LABS: Anion Gap 14 mmol/L (10-20); BUN (Urea Nitrogen) 17 mg/dL (9.8-20.1); Calc. Creatinine Clearance 0 mL/min (70-130); Calcium 9.6 mg/dL (7.8-10.44); Carbon Dioxide 29 mmol/L (23-31); Chloride 103 mmol/L (98-107); Glucose 97 mg/dL (83-110); Potassium 3.8 mmol/L (3.5-5.1); Sodium 142 mmol/L (136-145)
[2021-03-12 17:22] LABS: Hemoglobin 11.7 g/dL (12.0-15.5)
== END 2021-03-12 13:57 | disposition home or self-care (01) ==
LOC: LABBT 13:56
PROVIDERS: ATTEND Otolaryngology Plastic Surgery within the Head & Neck
DX: Z01.818 Encounter for other preprocedural examination (principal); C32.9 Malignant neoplasm of larynx, unspecified; R13.10 Dysphagia, unspecified; Z20.822 Contact with and (suspected) exposure to COVID-19
CPT/HCPCS: 80048; 85014; 85018; 93005; 93010

== ENCOUNTER 2021-03-15 14:17 | Inpatient (IN) | payer MEDICARE ==
[~2021-03-15 14:17] MED LIST changes: +Iopamidol-370 76% 500 ML 1 ML ONE; -PEGFILGRASTIM-JMDB 6 MG/0.6 ML SYRINGE SQ SCH
[2021-03-15 15:02] LABS: #Lymphocytes 1.1 thou/uL (1.20-3.40); #Monocytes 0.6 thou/uL (0.11-0.59); #Neutrophils 4.8 thou/uL (1.40-6.50); %Basophils 0.5 % (0.0-1.0); %Eosinophils 0.1 % (0.0-10.0); %Lymphocytes 17.2 % (21.0-51.0); %Monocytes 9.7 % (0.0-10.0); %Neutrophils 72.5 % (42.0-75.0); Hemoglobin 12.4 g/dL (12.0-16.0); Mean Corpuscular HGB CONC 32.8 g/dL (32.0-36.0); Mean Corpuscular Hemoglobin 29.3 pg (27.0-31.0); Mean Corpuscular Volume 89.3 fL (78.0-98.0); Mean Platelet Volume 9.1 fL (7.4-10.4); Platelet Count 191 thou/uL (130-400); Red Blood Cell (RBC) Count 4.21 mill/uL (4.20-5.40); White Blood Cell (WBC) Count 6.6 thou/uL (4.8-10.8)
[2021-03-15 15:24] LABS: ALT (SGPT) 14 U/L (8-55); AST (SGOT) 15 U/L (5-34); Albumin 4.1 g/dL (3.4-4.8); Alkaline Phosphatase 104 U/L (40-110); Anion Gap 15 mmol/L (10-20); BUN (Urea Nitrogen) 10 mg/dL (9.8-20.1); Bilirubin, Total 0.5 mg/dL (0.2-1.2); Calc. Creatinine Clearance 0 mL/min (70-130); Calcium 9.8 mg/dL (7.8-10.44); Carbon Dioxide 28 mmol/L (23-31); Chloride 99 mmol/L (98-107); Globulin 3.9 g/dL (2.4-3.5); Glucose 128 mg/dL (83-110); Potassium 3.7 mmol/L (3.5-5.1); Sodium 138 mmol/L (136-145)
[2021-03-15] MEDS ORDERED: Acetaminophen 500 MG TAB ONE (16:57)
[2021-03-15 16:58] LABS: Actual Bicarbonate (HCO3v) 25 mEq/L (22-28); Analyzer IN Cardio ER; Base Excess 0.6 mEq/L (-2.0 to +3.0); Calcium, Ionized (venous) 1.18 mmol/L (1.16-1.32); Chloride (VBG) 102 mmol/L (98-106); Hemoglobin (Hb) 12.2 g/dL (11.7-16.1); Potassium (VBG) 3.58 mmol/L (3.70-5.30); Sodium 136.4 mmol/L (133-146); pH (venous) 7.43 (7.32-7.43)
[2021-03-15] MEDS ORDERED: levETIRAcetam 500 MG TAB PO SCH (23:00)
[2021-03-15] MEDS ORDERED: HYDROcodone/Acetaminophen 5/325 mg Tablet PO PRN (23:03)
[2021-03-15] MEDS ORDERED: Ondansetron PF 4 MG/2 ML Vial IVP PRN (23:03)
[2021-03-15] MEDS ORDERED: hydrALAZINE 20 MG/ML VIAL SLOW IVP PRN (23:09)
[2021-03-16] MEDS: methylPREDNISolone Sod Succ 40 MG VIAL IVP SCH ×4 (00:30→17:21)
[2021-03-16 04:37] LABS: Calcium 9.4 mg/dL (7.8-10.44); Chloride 102 mmol/L (98-107); Potassium 4.9 mmol/L (3.5-5.1); Sodium 133 mmol/L (136-145)
[2021-03-16 04:46] LABS: Glucose 100 mg/dL (83-110)
[2021-03-16 04:48] LABS: Anion Gap 18 mmol/L (10-20); Carbon Dioxide 18 mmol/L (23-31)
[2021-03-16 04:50] LABS: BUN (Urea Nitrogen) 18 mg/dL (9.8-20.1); Calc. Creatinine Clearance 70 mL/min (70-130)
[2021-03-16 04:59] LABS: #Lymphocytes 0.7 thou/uL (1.20-3.40); #Monocytes 0.3 thou/uL (0.11-0.59); #Neutrophils 5.2 thou/uL (1.40-6.50); %Basophils 0.2 % (0.0-1.0); %Eosinophils 0.1 % (0.0-10.0); %Lymphocytes 11.2 % (21.0-51.0); %Monocytes 4.2 % (0.0-10.0); %Neutrophils 84.3 % (42.0-75.0); Hemoglobin 11.6 g/dL (12.0-16.0); Mean Corpuscular HGB CONC 32.6 g/dL (32.0-36.0); Mean Corpuscular Hemoglobin 29.1 pg (27.0-31.0); Mean Corpuscular Volume 89.2 fL (78.0-98.0); Mean Platelet Volume 8.9 fL (7.4-10.4); Platelet Count 180 thou/uL (130-400); White Blood Cell (WBC) Count 6.1 thou/uL (4.8-10.8)
[2021-03-16] MEDS: Famotidine 20 MG TAB PO SCH ×2 (08:20→20:58)
[2021-03-16] MEDS: Acetaminophen 325 MG TAB PO PRN ×3 (08:21→20:58)
[2021-03-16] MEDS: levETIRAcetam 500 MG TAB PO SCH (20:58)
[2021-03-16] MEDS: Atorvastatin Calcium 20 MG TAB PO SCH (20:58)
[2021-03-17] MEDS: methylPREDNISolone Sod Succ 40 MG VIAL IVP SCH ×5 (00:18→23:34)
[2021-03-17 05:05] LABS: #Lymphocytes 0.6 thou/uL (1.20-3.40); #Monocytes 0.4 thou/uL (0.11-0.59); #Neutrophils 5.3 thou/uL (1.40-6.50); %Basophils 0.2 % (0.0-1.0); %Eosinophils 0.1 % (0.0-10.0); %Lymphocytes 10.1 % (21.0-51.0); %Monocytes 6.4 % (0.0-10.0); %Neutrophils 83.2 % (42.0-75.0); Hemoglobin 11.3 g/dL (12.0-16.0); Mean Corpuscular HGB CONC 32.1 g/dL (32.0-36.0); Mean Corpuscular Hemoglobin 29.2 pg (27.0-31.0); Mean Corpuscular Volume 90.7 fL (78.0-98.0); Mean Platelet Volume 9.4 fL (7.4-10.4); Platelet Count 179 thou/uL (130-400); RBC Distribution Width 13.1 % (11.5-14.5); Red Blood Cell (RBC) Count 3.87 mill/uL (4.20-5.40); White Blood Cell (WBC) Count 6.3 thou/uL (4.8-10.8)
[2021-03-17 05:28] LABS: Anion Gap 12 mmol/L (10-20); BUN (Urea Nitrogen) 21 mg/dL (9.8-20.1); Calc. Creatinine Clearance 72 mL/min (70-130); Calcium 9.4 mg/dL (7.8-10.44); Carbon Dioxide 28 mmol/L (23-31); Chloride 102 mmol/L (98-107); Glucose 127 mg/dL (83-110); Potassium 4.1 mmol/L (3.5-5.1); Sodium 138 mmol/L (136-145)
[2021-03-17] MEDS ORDERED: Sodium Chloride 0.9% 10 ML ONE (10:25)
[2021-03-17] MEDS ORDERED: Lidocaine 1% w/Epinephrine 1:100K 20 ML VIAL ONE (10:43)
[2021-03-17] MEDS ORDERED: Midazolam HCl 2 mg/2 ml Vial ONE (10:45)
[2021-03-17] MEDS ORDERED: Fentanyl 250 MCG/5 ML VIAL ONE (10:45)
[2021-03-17] MEDS ORDERED: PROPOFOL 200 MG/20 ML VIAL ONE (11:00)
[2021-03-17] MEDS ORDERED: PHENYLEPHRINE-NS 100 MCG/ML 10 ML SYRINGE ONE (11:00)
[2021-03-17] MEDS ORDERED: Lidocaine 1% PF 5 ML VIAL ONE (11:00)
[2021-03-17] MEDS ORDERED: Succinylcholine 200 MG/10 ml SYRINGE FS ONE (11:00)
[2021-03-17] MEDS ORDERED: Clindamycin/D5W 900 mg/50 ml Premix Bag ONE (11:18)
[2021-03-17] MEDS ORDERED: Phenylephrine 10 MG/ML VIAL ONE (11:33)
[2021-03-17] MEDS ORDERED: Fentanyl 100 MCG/2 ML VIAL ONE (15:07)
[2021-03-17] MEDS ORDERED: diphenhydrAMINE 25 MG CAP PO PRN (15:45)
[2021-03-17] MEDS ORDERED: Naloxone HCl 0.4 mg/ml Vial IV PRN (15:45)
[2021-03-17] MEDS ORDERED: Fentanyl CADD 100 ML IVPB SCH (15:45)
[2021-03-17] MEDS ORDERED: Ondansetron PF 4 MG/2 ML Vial IVP PRN ×2 (15:45→16:27)
[2021-03-17] MEDS ORDERED: Promethazine HCl 25 MG/ML VIAL IM PRN (15:45)
[2021-03-17] MEDS: Famotidine 20 MG TAB PO SCH ×2 (16:27→21:10)
[2021-03-17] MEDS: levETIRAcetam 500 MG TAB PO SCH ×2 (16:27→21:10)
[2021-03-17] MEDS ORDERED: Hydrocodone-Acetamin 15 ML UDCUP PER TUBE PRN (16:27)
[2021-03-17] MEDS: Sodium Chloride 0.45% 1,000 ML IV SCH (16:39)
[2021-03-17] MEDS ORDERED: Fentanyl CADD 100 ML ONE (16:41)
[2021-03-17 19:37] LABS: Hep C IgG Ab Non-Reactive (NonReactive); Hep C Index 0.22 S/CO (0-0.79)
[2021-03-17] MEDS: Clindamycin/D5W 900 MG in Premix Bag 1 BAG IVPB SCH (21:09)
[2021-03-17] MEDS: Atorvastatin Calcium 20 MG TAB PO SCH (21:10)
[2021-03-18] MEDS: Sodium Chloride 0.45% 1,000 ML IV SCH ×3 (00:23→20:22)
[2021-03-18] MEDS: Clindamycin/D5W 900 MG in Premix Bag 1 BAG IVPB SCH ×3 (03:41→20:22)
[2021-03-18 03:46] LABS: #Lymphocytes 0.6 thou/uL (1.20-3.40); #Neutrophils 9.2 thou/uL (1.40-6.50); %Basophils 0.2 % (0.0-1.0); %Eosinophils 0.1 % (0.0-10.0); %Lymphocytes 5.5 % (21.0-51.0); %Monocytes 9.1 % (0.0-10.0); Hemoglobin 10.4 g/dL (12.0-16.0); Mean Corpuscular Hemoglobin 28.9 pg (27.0-31.0); Mean Corpuscular Volume 90.4 fL (78.0-98.0); Platelet Count 160 thou/uL (130-400); White Blood Cell (WBC) Count 10.8 thou/uL (4.8-10.8)
[2021-03-18 04:09] LABS: ALT (SGPT) 14 U/L (8-55); AST (SGOT) 18 U/L (5-34); Albumin 3.3 g/dL (3.4-4.8); Alkaline Phosphatase 74 U/L (40-110); Anion Gap 12 mmol/L (10-20); BUN (Urea Nitrogen) 14 mg/dL (9.8-20.1); Bilirubin, Total 0.4 mg/dL (0.2-1.2); Calc. Creatinine Clearance 77 mL/min (70-130); Calcium 8.5 mg/dL (7.8-10.44); Carbon Dioxide 26 mmol/L (23-31); Chloride 102 mmol/L (98-107); Globulin 3.1 g/dL (2.4-3.5); Glucose 130 mg/dL (83-110); Potassium 4.2 mmol/L (3.5-5.1); Protein, Total 6.4 g/dL (5.8-8.1); Sodium 136 mmol/L (136-145)
[2021-03-18] MEDS: methylPREDNISolone Sod Succ 40 MG VIAL IVP SCH ×3 (06:24→18:31)
[2021-03-18] MEDS: levETIRAcetam in NS 500 MG in Premix Bag 1 BAG IVPB SCH ×2 (09:48→20:22)
[2021-03-18] MEDS: Famotidine 20 MG TAB PO SCH ×2 (09:48→20:22)
[2021-03-18] MEDS: Fosphenytoin Sodium 100 MG in Sodium Chloride 0.9% 100 ML IVPB SCH ×3 (10:45→20:22)
[2021-03-18] MEDS: Atorvastatin Calcium 20 MG TAB PO SCH (20:22)
[2021-03-19] MEDS: Zolpidem Tartrate 5 MG TAB PO PRN ×2 (00:06→21:11)
[2021-03-19] MEDS: methylPREDNISolone Sod Succ 40 MG VIAL IVP SCH ×4 (00:06→21:04)
[2021-03-19] MEDS: Sodium Chloride 0.45% 1,000 ML IV SCH ×3 (00:18→18:03)
[2021-03-19] MEDS: diphenhydrAMINE 50 MG/ML VIAL IM/IV PRN (02:02)
[2021-03-19] MEDS: Clindamycin/D5W 900 MG in Premix Bag 1 BAG IVPB SCH ×3 (04:02→20:12)
[2021-03-19] MEDS: Pantoprazole 40 MG GRANULES PACKET PER TUBE SCH (09:01)
[2021-03-19] MEDS: Docusate Sodium 100 MG/10 ML UDCUP PER TUBE SCH ×2 (09:01→21:03)
[2021-03-19] MEDS: levETIRAcetam in NS 500 MG in Premix Bag 1 BAG IVPB SCH ×2 (09:01→20:57)
[2021-03-19] MEDS: Famotidine 20 MG TAB PO SCH ×2 (09:01→21:03)
[2021-03-19] MEDS ORDERED: Fentanyl 100 MCG/2 ML VIAL SLOW IVP SCH (11:00)
[2021-03-19] MEDS: HYDROcodone/Acetaminophen 5/325 mg Tablet PER TUBE PRN ×2 (11:25→23:56)
[2021-03-19] MEDS: Fosphenytoin Sodium 100 MG in Sodium Chloride 0.9% 100 ML IVPB SCH ×3 (11:26→21:23)
[2021-03-19] MEDS: Acetaminophen 325 MG TAB PO PRN (13:09)
[2021-03-19] MEDS: Atorvastatin Calcium 20 MG TAB PO SCH (21:03)
[2021-03-20] MEDS: Sodium Chloride 0.45% 1,000 ML IV SCH ×3 (00:30→18:19)
[2021-03-20] MEDS: HYDROcodone/Acetaminophen 5/325 mg Tablet PER TUBE PRN ×2 (04:19→09:40)
[2021-03-20] MEDS: Clindamycin/D5W 900 MG in Premix Bag 1 BAG IVPB SCH ×3 (04:30→20:03)
[2021-03-20 05:03] LABS: #Lymphocytes 1.4 thou/uL (1.20-3.40); #Monocytes 0.6 thou/uL (0.11-0.59); %Basophils 0.3 % (0.0-1.0); %Eosinophils 0.1 % (0.0-10.0); %Monocytes 7.3 % (0.0-10.0); %Neutrophils 75.3 % (42.0-75.0); Hemoglobin 10.1 g/dL (12.0-16.0); Mean Corpuscular HGB CONC 31.3 g/dL (32.0-36.0); Mean Corpuscular Hemoglobin 28.7 pg (27.0-31.0); Mean Corpuscular Volume 91.8 fL (78.0-98.0); Mean Platelet Volume 8.7 fL (7.4-10.4); Platelet Count 194 thou/uL (130-400); Red Blood Cell (RBC) Count 3.53 mill/uL (4.20-5.40)
[2021-03-20 05:21] LABS: Anion Gap 11 mmol/L (10-20); BUN (Urea Nitrogen) 8 mg/dL (9.8-20.1); Calc. Creatinine Clearance 94 mL/min (70-130); Calcium 8.9 mg/dL (7.8-10.44); Carbon Dioxide 31 mmol/L (23-31); Chloride 102 mmol/L (98-107); Glucose 143 mg/dL (83-110); Potassium 3.8 mmol/L (3.5-5.1); Sodium 140 mmol/L (136-145)
[2021-03-20] MEDS: Fosphenytoin Sodium 100 MG in Sodium Chloride 0.9% 100 ML IVPB SCH ×3 (09:41→21:23)
[2021-03-20] MEDS: levETIRAcetam in NS 500 MG in Premix Bag 1 BAG IVPB SCH ×2 (09:43→20:56)
[2021-03-20] MEDS: Docusate Sodium 100 MG/10 ML UDCUP PER TUBE SCH ×2 (09:49→20:58)
[2021-03-20] MEDS: Famotidine 20 MG TAB PO SCH ×2 (09:49→20:58)
[2021-03-20] MEDS: Pantoprazole 40 MG GRANULES PACKET PER TUBE SCH (09:49)
[2021-03-20] MEDS: methylPREDNISolone Sod Succ 40 MG VIAL IVP SCH ×2 (09:51→20:59)
[2021-03-20 13:15] LABS: HIV-1 Quantitative, RNA PCR <20 copies/mL (.)
[2021-03-20] MEDS: Ketorolac Tromethamine 30 MG/ML VIAL IVP PRN (14:01)
[2021-03-20] MEDS: Bacitracin 1 PK TOP PRN (14:24)
[2021-03-20] MEDS: Atorvastatin Calcium 20 MG TAB PO SCH (20:58)
[2021-03-20] MEDS: Zolpidem Tartrate 5 MG TAB PO PRN (20:59)
[2021-03-21] MEDS: HYDROcodone/Acetaminophen 5/325 mg Tablet PER TUBE PRN ×3 (00:07→20:54)
[2021-03-21] MEDS: Sodium Chloride 0.45% 1,000 ML IV SCH ×2 (02:16→09:54)
[2021-03-21] MEDS: Clindamycin/D5W 900 MG in Premix Bag 1 BAG IVPB SCH ×3 (03:55→20:13)
[2021-03-21] MEDS: Bacitracin 1 PK TOP PRN ×2 (03:55→16:24)
[2021-03-21 04:24] LABS: #Monocytes 0.5 thou/uL (0.11-0.59); #Neutrophils 4.1 thou/uL (1.40-6.50); %Basophils 0.3 % (0.0-1.0); %Eosinophils 0.1 % (0.0-10.0); %Lymphocytes 17.2 % (21.0-51.0); %Monocytes 9.1 % (0.0-10.0); %Neutrophils 73.3 % (42.0-75.0); Mean Corpuscular HGB CONC 30.3 g/dL (32.0-36.0); Mean Corpuscular Volume 92.3 fL (78.0-98.0); Mean Platelet Volume 8.4 fL (7.4-10.4); Platelet Count 201 thou/uL (130-400); Red Blood Cell (RBC) Count 3.59 mill/uL (4.20-5.40); White Blood Cell (WBC) Count 5.6 thou/uL (4.8-10.8)
[2021-03-21 04:45] LABS: Anion Gap 13 mmol/L (10-20); BUN (Urea Nitrogen) 11 mg/dL (9.8-20.1); Calc. Creatinine Clearance 85 mL/min (70-130); Calcium 8.9 mg/dL (7.8-10.44); Carbon Dioxide 30 mmol/L (23-31); Chloride 100 mmol/L (98-107); Glucose 165 mg/dL (83-110); Sodium 139 mmol/L (136-145)
[2021-03-21] MEDS: Ketorolac Tromethamine 30 MG/ML VIAL IVP PRN ×2 (09:13→16:24)
[2021-03-21] MEDS: Pantoprazole 40 MG GRANULES PACKET PER TUBE SCH (09:14)
[2021-03-21] MEDS: Famotidine 20 MG TAB PO SCH ×2 (09:15→20:55)
[2021-03-21] MEDS: methylPREDNISolone Sod Succ 40 MG VIAL IVP SCH (09:15)
[2021-03-21] MEDS: Docusate Sodium 100 MG/10 ML UDCUP PER TUBE SCH ×2 (09:15→20:54)
[2021-03-21] MEDS: levETIRAcetam in NS 500 MG in Premix Bag 1 BAG IVPB SCH ×2 (09:17→20:50)
[2021-03-21] MEDS: Fosphenytoin Sodium 100 MG in Sodium Chloride 0.9% 100 ML IVPB SCH ×3 (09:17→21:30)
[2021-03-21] MEDS: Atorvastatin Calcium 20 MG TAB PO SCH (20:55)
[2021-03-21] MEDS: Zolpidem Tartrate 5 MG TAB PO PRN (20:55)
[2021-03-22] MEDS: Sodium Chloride 0.45% 1,000 ML IV SCH ×3 (00:05→20:16)
[2021-03-22] MEDS: Clindamycin/D5W 900 MG in Premix Bag 1 BAG IVPB SCH ×3 (04:01→20:13)
[2021-03-22] MEDS: Bacitracin 1 PK TOP PRN ×2 (04:06→13:32)
[2021-03-22 04:54] LABS: #Monocytes 0.6 thou/uL (0.11-0.59); #Neutrophils 3.5 thou/uL (1.40-6.50); %Basophils 0.6 % (0.0-1.0); %Eosinophils 0.2 % (0.0-10.0); %Lymphocytes 19.5 % (21.0-51.0); %Monocytes 11.9 % (0.0-10.0); %Neutrophils 67.7 % (42.0-75.0); Mean Corpuscular Hemoglobin 29.6 pg (27.0-31.0); Mean Corpuscular Volume 92.4 fL (78.0-98.0); Mean Platelet Volume 8.3 fL (7.4-10.4); Platelet Count 203 thou/uL (130-400); Red Blood Cell (RBC) Count 3.38 mill/uL (4.20-5.40); White Blood Cell (WBC) Count 5.2 thou/uL (4.8-10.8)
[2021-03-22 05:34] LABS: Anion Gap 12 mmol/L (10-20); BUN (Urea Nitrogen) 13 mg/dL (9.8-20.1); Calc. Creatinine Clearance 82 mL/min (70-130); Carbon Dioxide 32 mmol/L (23-31); Chloride 99 mmol/L (98-107); Glucose 116 mg/dL (83-110); Potassium 3.9 mmol/L (3.5-5.1); Sodium 139 mmol/L (136-145)
[2021-03-22] MEDS: Pantoprazole 40 MG GRANULES PACKET PER TUBE SCH (09:25)
[2021-03-22] MEDS: Famotidine 20 MG TAB PO SCH ×2 (09:25→20:32)
[2021-03-22] MEDS: Docusate Sodium 100 MG/10 ML UDCUP PER TUBE SCH ×2 (09:25→20:32)
[2021-03-22] MEDS: predniSONE 20 MG TAB PO SCH (09:25)
[2021-03-22] MEDS: levETIRAcetam in NS 500 MG in Premix Bag 1 BAG IVPB SCH ×2 (09:26→20:48)
[2021-03-22] MEDS: Fosphenytoin Sodium 100 MG in Sodium Chloride 0.9% 100 ML IVPB SCH ×3 (10:13→21:04)
[2021-03-22] MEDS: Ketorolac Tromethamine 30 MG/ML VIAL IVP PRN (10:18)
[2021-03-22] MEDS: HYDROcodone/Acetaminophen 5/325 mg Tablet PER TUBE PRN ×2 (13:31→20:31)
[2021-03-22] MEDS: Zolpidem Tartrate 5 MG TAB PO PRN (20:31)
[2021-03-22] MEDS: Atorvastatin Calcium 20 MG TAB PO SCH (20:32)
[2021-03-23] MEDS: HYDROcodone/Acetaminophen 5/325 mg Tablet PER TUBE PRN ×2 (03:10→15:41)
[2021-03-23] MEDS: Bacitracin 1 PK TOP PRN ×2 (03:10→15:09)
[2021-03-23] MEDS: Clindamycin/D5W 900 MG in Premix Bag 1 BAG IVPB SCH ×3 (03:40→20:04)
[2021-03-23] MEDS: levETIRAcetam in NS 500 MG in Premix Bag 1 BAG IVPB SCH ×2 (09:07→20:37)
[2021-03-23] MEDS: Famotidine 20 MG TAB PO SCH ×2 (09:07→20:10)
[2021-03-23] MEDS: Pantoprazole 40 MG GRANULES PACKET PER TUBE SCH (09:07)
[2021-03-23] MEDS: Docusate Sodium 100 MG/10 ML UDCUP PER TUBE SCH ×2 (09:07→20:10)
[2021-03-23] MEDS: Sodium Chloride 0.45% 1,000 ML IV SCH ×3 (09:07→21:43)
[2021-03-23] MEDS: predniSONE 20 MG TAB PO SCH (09:07)
[2021-03-23] MEDS: Fosphenytoin Sodium 100 MG in Sodium Chloride 0.9% 100 ML IVPB SCH ×3 (09:09→21:40)
[2021-03-23] MEDS: Ketorolac Tromethamine 30 MG/ML VIAL IVP PRN (10:10)
[2021-03-23] MEDS: Zolpidem Tartrate 5 MG TAB PO PRN (20:10)
[2021-03-23] MEDS: Atorvastatin Calcium 20 MG TAB PO SCH (20:10)
[2021-03-24] MEDS: HYDROcodone/Acetaminophen 5/325 mg Tablet PER TUBE PRN ×2 (01:13→16:49)
[2021-03-24] MEDS: Clindamycin/D5W 900 MG in Premix Bag 1 BAG IVPB SCH ×3 (04:34→19:53)
[2021-03-24] MEDS: Bacitracin 1 PK TOP PRN (04:34)
[2021-03-24] MEDS: Docusate Sodium 100 MG/10 ML UDCUP PER TUBE SCH ×2 (09:26→20:15)
[2021-03-24] MEDS: Famotidine 20 MG TAB PO SCH ×2 (09:26→20:15)
[2021-03-24] MEDS: predniSONE 20 MG TAB PO SCH (09:26)
[2021-03-24] MEDS: levETIRAcetam in NS 500 MG in Premix Bag 1 BAG IVPB SCH ×2 (09:26→20:45)
[2021-03-24] MEDS: Pantoprazole 40 MG GRANULES PACKET PER TUBE SCH (09:26)
[2021-03-24] MEDS: Fosphenytoin Sodium 100 MG in Sodium Chloride 0.9% 100 ML IVPB SCH ×3 (09:29→21:38)
[2021-03-24] MEDS: Ketorolac Tromethamine 30 MG/ML VIAL IVP PRN (13:18)
[2021-03-24] MEDS: Sodium Chloride 0.45% 1,000 ML IV SCH (13:49)
[2021-03-24] MEDS: Atorvastatin Calcium 20 MG TAB PO SCH (20:16)
[2021-03-25] MEDS: Ketorolac Tromethamine 30 MG/ML VIAL IVP PRN ×2 (01:15→11:43)
[2021-03-25] MEDS: Sodium Chloride 0.45% 1,000 ML IV SCH ×3 (01:16→18:30)
[2021-03-25] MEDS: Clindamycin/D5W 900 MG in Premix Bag 1 BAG IVPB SCH ×3 (03:58→20:09)
[2021-03-25] MEDS ORDERED: Fleet Enema 133 ML BOT PR SCH (04:30)
[2021-03-25] MEDS: Fosphenytoin Sodium 100 MG in Sodium Chloride 0.9% 100 ML IVPB SCH ×3 (08:54→22:01)
[2021-03-25] MEDS: levETIRAcetam in NS 500 MG in Premix Bag 1 BAG IVPB SCH ×2 (08:54→21:15)
[2021-03-25] MEDS: predniSONE 20 MG TAB PO SCH (08:56)
[2021-03-25] MEDS: Famotidine 20 MG TAB PO SCH ×2 (08:56→21:14)
[2021-03-25] MEDS: Pantoprazole 40 MG GRANULES PACKET PER TUBE SCH (08:56)
[2021-03-25] MEDS: Docusate Sodium 100 MG/10 ML UDCUP PER TUBE SCH ×2 (08:56→21:14)
[2021-03-25] MEDS: Bacitracin 1 PK TOP PRN (10:10)
[2021-03-25] MEDS: Atorvastatin Calcium 20 MG TAB PO SCH (21:14)
[2021-03-26] MEDS: Clindamycin/D5W 900 MG in Premix Bag 1 BAG IVPB SCH ×3 (04:17→20:42)
[2021-03-26] MEDS: Sodium Chloride 0.45% 1,000 ML IV SCH ×2 (04:18→06:35)
[2021-03-26] MEDS: Fosphenytoin Sodium 100 MG in Sodium Chloride 0.9% 100 ML IVPB SCH ×3 (08:50→23:08)
[2021-03-26] MEDS: Pantoprazole 40 MG GRANULES PACKET PER TUBE SCH (08:50)
[2021-03-26] MEDS: Famotidine 20 MG TAB PO SCH ×2 (08:50→22:25)
[2021-03-26] MEDS: levETIRAcetam in NS 500 MG in Premix Bag 1 BAG IVPB SCH ×2 (08:50→22:26)
[2021-03-26] MEDS: Docusate Sodium 100 MG/10 ML UDCUP PER TUBE SCH ×2 (08:51→22:25)
[2021-03-26] MEDS: Bacitracin 1 PK TOP PRN (10:30)
[2021-03-26] MEDS: HYDROcodone/Acetaminophen 5/325 mg Tablet PER TUBE PRN ×2 (14:26→22:24)
[2021-03-26] MEDS: Atorvastatin Calcium 20 MG TAB PO SCH (22:25)
[2021-03-27] MEDS: Clindamycin/D5W 900 MG in Premix Bag 1 BAG IVPB SCH ×3 (04:13→20:09)
[2021-03-27] MEDS: Bacitracin 1 PK TOP PRN ×2 (06:12→17:18)
[2021-03-27] MEDS: HYDROcodone/Acetaminophen 5/325 mg Tablet PER TUBE PRN ×2 (08:14→20:28)
[2021-03-27] MEDS: Pantoprazole 40 MG GRANULES PACKET PER TUBE SCH (08:16)
[2021-03-27] MEDS: Docusate Sodium 100 MG/10 ML UDCUP PER TUBE SCH ×2 (08:16→20:10)
[2021-03-27] MEDS: Fosphenytoin Sodium 100 MG in Sodium Chloride 0.9% 100 ML IVPB SCH ×3 (08:16→22:52)
[2021-03-27] MEDS: Famotidine 20 MG TAB PO SCH ×2 (08:16→20:10)
[2021-03-27] MEDS: levETIRAcetam in NS 500 MG in Premix Bag 1 BAG IVPB SCH ×2 (09:25→21:48)
[2021-03-27 12:25] LABS: #Monocytes 0.7 thou/uL (0.11-0.59); #Neutrophils 9.7 thou/uL (1.40-6.50); %Basophils 0.2 % (0.0-1.0); %Eosinophils 0.1 % (0.0-10.0); %Lymphocytes 8.4 % (21.0-51.0); %Monocytes 6.5 % (0.0-10.0); %Neutrophils 84.8 % (42.0-75.0); Hemoglobin 10.3 g/dL (12.0-16.0); Mean Corpuscular Hemoglobin 29.2 pg (27.0-31.0); Mean Corpuscular Volume 91.2 fL (78.0-98.0); Mean Platelet Volume 7.9 fL (7.4-10.4); Platelet Count 279 thou/uL (130-400); RBC Distribution Width 13.3 % (11.5-14.5); Red Blood Cell (RBC) Count 3.51 mill/uL (4.20-5.40); White Blood Cell (WBC) Count 11.4 thou/uL (4.8-10.8)
[2021-03-27 12:46] LABS: ALT (SGPT) 16 U/L (8-55); AST (SGOT) 14 U/L (5-34); Albumin 3.7 g/dL (3.4-4.8); Alkaline Phosphatase 81 U/L (40-110); BUN (Urea Nitrogen) 13 mg/dL (9.8-20.1); Bilirubin, Total 0.2 mg/dL (0.2-1.2); Calc. Creatinine Clearance 83 mL/min (70-130); Calcium 9.6 mg/dL (7.8-10.44); Globulin 3.7 g/dL (2.4-3.5); Glucose 172 mg/dL (83-110); Protein, Total 7.4 g/dL (5.8-8.1)
[2021-03-27 12:50] LABS: Chloride 99 mmol/L (98-107); Potassium 4.4 mmol/L (3.5-5.1); Sodium 136 mmol/L (136-145)
[2021-03-27 18:42] LABS: Anion Gap 27 mmol/L (10-20); Carbon Dioxide 17 mmol/L (23-31)
[2021-03-27] MEDS: Atorvastatin Calcium 20 MG TAB PO SCH (20:10)
[2021-03-27] MEDS ORDERED: diphenhydrAMINE 50 MG/ML VIAL IVP PRN (23:04)
[2021-03-28] MEDS: Clindamycin/D5W 900 MG in Premix Bag 1 BAG IVPB SCH (04:31)
[2021-03-28] MEDS: Bacitracin 1 PK TOP PRN ×2 (06:15→21:46)
[2021-03-28] MEDS: Fosphenytoin Sodium 100 MG in Sodium Chloride 0.9% 100 ML IVPB SCH ×3 (08:35→20:31)
[2021-03-28] MEDS: Famotidine 20 MG TAB PO SCH ×2 (08:36→19:52)
[2021-03-28] MEDS: Pantoprazole 40 MG GRANULES PACKET PER TUBE SCH (08:36)
[2021-03-28] MEDS: Docusate Sodium 100 MG/10 ML UDCUP PER TUBE SCH ×2 (08:36→19:52)
[2021-03-28] MEDS: levETIRAcetam in NS 500 MG in Premix Bag 1 BAG IVPB SCH ×2 (10:34→19:52)
[2021-03-28] MEDS: HYDROcodone/Acetaminophen 5/325 mg Tablet PER TUBE PRN ×2 (12:07→21:44)
[2021-03-28] MEDS: Atorvastatin Calcium 20 MG TAB PO SCH (19:52)
[2021-03-29] MEDS: Fosphenytoin Sodium 100 MG in Sodium Chloride 0.9% 100 ML IVPB SCH ×3 (09:17→21:10)
[2021-03-29] MEDS: Docusate Sodium 100 MG/10 ML UDCUP PER TUBE SCH ×2 (09:17→21:10)
[2021-03-29] MEDS: levETIRAcetam in NS 500 MG in Premix Bag 1 BAG IVPB SCH ×2 (10:11→21:10)
[2021-03-29] MEDS: Famotidine 20 MG TAB PO SCH ×2 (10:14→21:10)
[2021-03-29] MEDS: Pantoprazole 40 MG GRANULES PACKET PER TUBE SCH (10:14)
[2021-03-29] MEDS: Acetaminophen 325 MG TAB PO PRN (12:15)
[2021-03-29 12:23] VITALS: BMI 23.0
[2021-03-29] MEDS: Bacitracin 1 PK TOP PRN ×2 (16:37→21:11)
[2021-03-29] MEDS: Atorvastatin Calcium 20 MG TAB PO SCH (21:10)
[2021-03-29] MEDS: HYDROcodone/Acetaminophen 5/325 mg Tablet PER TUBE PRN (21:11)
[2021-03-30] MEDS: diphenhydrAMINE 50 MG/ML VIAL IM/IV PRN (00:18)
[2021-03-30] MEDS: Zolpidem Tartrate 5 MG TAB PO PRN (02:55)
[2021-03-30] MEDS: Docusate Sodium 100 MG/10 ML UDCUP PER TUBE SCH (08:39)
[2021-03-30] MEDS: Pantoprazole 40 MG GRANULES PACKET PER TUBE SCH (08:40)
[2021-03-30] MEDS: Famotidine 20 MG TAB PO SCH (08:40)
[2021-03-30] MEDS: Bacitracin 1 PK TOP PRN (08:40)
[2021-03-30] MEDS: levETIRAcetam in NS 500 MG in Premix Bag 1 BAG IVPB SCH (08:41)
[2021-03-30] MEDS: Fosphenytoin Sodium 100 MG in Sodium Chloride 0.9% 50 ML IVPB SCH ×2 (09:31→15:03)
[2021-03-30] MEDS: Acetaminophen 325 MG TAB PO PRN ×2 (10:29→14:56)
[2021-03-30 19:17] VITALS: BP 100/74; TEMP 98
== END 2021-03-30 17:33 | disposition home health service (06) | DRG 11 ==
LOC: ERS 14:17 → 2NO 18:05 → CCU 03-17 10:27 → IMCU/EMU 03-19 08:29 → T4-A 03-24 19:44
PROVIDERS: ADMIT Internal Medicine; ATTEND Internal Medicine
PROC: 5A09357 Assistance with Respiratory Ventilation, Less than 24 Consecutive Hours, Continuous Positive Airway Pressure (ICD-10-PCS; 2021-03-15)
PROC: 0CTS0ZZ Resection of Larynx, Open Approach (ICD-10-PCS; principal; 2021-03-17)
PROC: 07T20ZZ Resection of Left Neck Lymphatic, Open Approach (ICD-10-PCS; 2021-03-17)
PROC: 07T10ZZ Resection of Right Neck Lymphatic, Open Approach (ICD-10-PCS; 2021-03-17)
PROC: 0BB10ZZ Excision of Trachea, Open Approach (ICD-10-PCS; 2021-03-17)
PROC: 0DH67UZ Insertion of Feeding Device into Stomach, Via Natural or Artificial Opening (ICD-10-PCS; 2021-03-17)
PROC: 0K840ZZ Division of Tongue, Palate, Pharynx Muscle, Open Approach (ICD-10-PCS; 2021-03-17)
DX: C32.9 Malignant neoplasm of larynx, unspecified (principal); J96.01 Acute respiratory failure with hypoxia; J44.1 Chronic obstructive pulmonary disease with (acute) exacerbation; Z66 Do not resuscitate; Z20.822 Contact with and (suspected) exposure to COVID-19; E78.5 Hyperlipidemia, unspecified; G40.909 Epilepsy, unspecified, not intractable, without status epilepticus; I10 Essential (primary) hypertension; F17.210 Nicotine dependence, cigarettes, uncomplicated; Z88.0 Allergy status to penicillin; Z79.899 Other long term (current) drug therapy; Z79.51 Long term (current) use of inhaled steroids; Z79.52 Long term (current) use of systemic steroids; Z90.710 Acquired absence of both cervix and uterus; Z98.890 Other specified postprocedural states
CPT/HCPCS: 36415; 71045; 71275; 80048; 80053; 82805; 83735; 83880; 85014; 85018; 85025; 85379; 86803; 87536; 88307; 88309; 93005; 93010; 94640; 94760; J1200; J1885; J1953; J1956; J2250; J2370; J2550; J2704; J2920; J3010; J3490; J7512; J7620; Q2009; Q9967

== ENCOUNTER 2022-03-21 09:25 | Outpatient (CLI) | payer MEDICARE ==
[2022-03-21 11:50] LABS: Hemoglobin 11.1 g/dL (12.0-15.5)
[2022-03-21 12:02] LABS: Anion Gap 17 mmol/L (10-20); BUN (Urea Nitrogen) 17 mg/dL (9.8-20.1); Calc. Creatinine Clearance 0 mL/min (70-130); Calcium 9.1 mg/dL (7.8-10.44); Carbon Dioxide 23 mmol/L (23-31); Chloride 104 mmol/L (98-107); Glucose 87 mg/dL (83-110); Potassium 4.1 mmol/L (3.5-5.1); Sodium 140 mmol/L (136-145)
== END 2022-03-21 09:26 | disposition home or self-care (01) ==
LOC: LABBT 09:25
PROVIDERS: ATTEND Otolaryngology Plastic Surgery within the Head & Neck
DX: Z01.818 Encounter for other preprocedural examination (principal); H92.01 Otalgia, right ear; F17.200 Nicotine dependence, unspecified, uncomplicated; R13.10 Dysphagia, unspecified; R68.84 Jaw pain; Z85.21 Personal history of malignant neoplasm of larynx; Z20.822 Contact with and (suspected) exposure to COVID-19
CPT/HCPCS: 80048; 85014; 85018; 93005; U0003; U0005; 93010

== ENCOUNTER 2022-03-23 09:30 | Day surgery (SDC) | payer MEDICARE ==
[2022-03-22 15:46] VITALS: BMI 25.5
[2022-03-23] MEDS ORDERED: EPINEPHrine 1 MG/ML AMP ONE (11:57)
[2022-03-23] MEDS ORDERED: fentaNYL Citrate/PF 100 MCG/2 ML SYRINGE ONE (12:10)
[2022-03-23] MEDS ORDERED: Dexamethasone 20 MG/5 ML VIAL ONE (12:12)
[2022-03-23] MEDS ORDERED: PROPOFOL 200 MG/20 ML VIAL ONE (12:12)
[2022-03-23] MEDS ORDERED: Phenylephrine 10 MG/ML VIAL ONE (12:12)
[2022-03-23] MEDS ORDERED: Ondansetron PF 4 MG/2 ML Vial ONE (12:12)
[2022-03-23] MEDS ORDERED: ePHEDrine 50 MG/ML VIAL ONE (12:12)
[2022-03-23] MEDS ORDERED: Fentanyl 100 MCG/2 ML VIAL ONE (12:59)
== END 2022-03-23 14:59 | disposition home or self-care (01) ==
LOC: SDC 09:30
PROVIDERS: ATTEND Otolaryngology Plastic Surgery within the Head & Neck
PROC: 0CJS8ZZ Inspection of Larynx, Via Natural or Artificial Opening Endoscopic (ICD-10-PCS; principal; 2022-03-23)
PROC: 0D757ZZ Dilation of Esophagus, Via Natural or Artificial Opening (ICD-10-PCS; 2022-03-23)
DX: K22.2 Esophageal obstruction (principal); H92.01 Otalgia, right ear; R68.84 Jaw pain; J45.909 Unspecified asthma, uncomplicated; I10 Essential (primary) hypertension; Z87.891 Personal history of nicotine dependence; Z85.21 Personal history of malignant neoplasm of larynx; Z79.899 Other long term (current) drug therapy; Z88.0 Allergy status to penicillin
CPT/HCPCS: J0171; J1100; J2370; J2405; J2704; J3010; J3490